=== PATIENT | female | born 1970 | race Caucasian/White ===

== ENCOUNTER → 2020-07-06 14:28 | Outpatient (BNVA) | payer OTHER, SELFPAY | PROVIDERS: Visit Provider Advanced Practice Midwife ==

== ENCOUNTER 2020-07-23 13:42 | Outpatient (REF) | payer OTHER, SELFPAY | END 2020-07-23 13:43 | disposition home or self-care (01) | LOC: HO.LAB 13:42 | PROVIDERS: Visit Provider Advanced Practice Midwife | DX: N84.1 Polyp of cervix uteri (principal) | CPT/HCPCS: 58558; 88305 ==

== ENCOUNTER 2020-09-03 11:33 | Outpatient (REF) | payer OTHER, SELFPAY ==
--- NOTE | ~2020-09-03 | MM_ITS ---
EXAMINATION: MM SCREENING DIGITAL BREAST TOMOSYNTHESIS, BILATERAL CLINICAL INFORMATION: Screening. Asymptomatic. The lifetime risk of breast cancer based on the Tyrer-Cuzick Model is 12%. COMPARISON: Outside mammography: 03/14/2018 ([facility]) TECHNIQUE: Digital breast tomosynthesis is performed in both the craniocaudal and mediolateral oblique views along with computer-aided detection (CAD). Synthesized 2D images are generated from the tomosynthesis. FINDINGS: There are scattered areas of fibroglandular density (ACR BI-RADS breast composition Category b). There are no significant masses, abnormal calcifications, or other abnormalities. The axilla and skin contours are unremarkable. No significant changes from prior outside exam. MM/MM tomosynthesis screening BI IMPRESSION: No mammographic evidence of malignancy. ASSESSMENT: BI-RADS 1: Negative RECOMMENDATION: Routine annual mammography screening. This patient's information was entered into a reminder system with a target due date for their next mammogram.
== END 2020-09-03 11:34 | disposition home or self-care (01) ==
LOC: HO.MAMMO 11:33
PROVIDERS: Visit Provider Physician Assistant
DX: Z12.31 Encounter for screening mammogram for malignant neoplasm of breast (principal)
CPT/HCPCS: 77063; 77067

== ENCOUNTER 2021-08-02 10:34 | Outpatient (REF) | payer OTHER, SELFPAY ==
[2021-08-04 21:02] LABS: HPV mRNA E6/E7 rflx Not Detected (Not Detected)
== END 2021-08-02 10:35 | disposition home or self-care (01) ==
LOC: HO.LAB 10:34
PROVIDERS: Visit Provider Advanced Practice Midwife
DX: Z01.411 Encounter for gynecological examination (general) (routine) with abnormal findings (principal); Z11.51 Encounter for screening for human papillomavirus (HPV); R23.2 Flushing
CPT/HCPCS: 87624; 88142

== ENCOUNTER 2021-10-07 13:44 | Outpatient (REF) | payer OTHER, SELFPAY ==
--- NOTE | ~2021-10-07 | MM_ITS ---
EXAMINATION: MM SCREENING DIGITAL BREAST TOMOSYNTHESIS, BILATERAL CLINICAL INFORMATION: Screening. Asymptomatic. The lifetime risk of breast cancer based on the Tyrer-Cuzick Model is 11%. COMPARISON: Mammography: 09/03/2020, outside exam 03/14/2018 ([facility]). TECHNIQUE: Digital breast tomosynthesis is performed in both the craniocaudal and mediolateral oblique views along with computer-aided detection (CAD). Synthesized 2D images are generated from the tomosynthesis. FINDINGS: There are scattered areas of fibroglandular density (ACR BI-RADS breast composition Category b). There are no significant masses, abnormal calcifications, or other abnormalities. The axilla are unremarkable. No significant changes. MM/MM tomosynthesis screening BI IMPRESSION: No mammographic evidence of malignancy. ASSESSMENT: BI-RADS 1: Negative RECOMMENDATION: Routine annual mammography screening. This patient's information was entered into a reminder system with a target due date for their next mammogram.
== END 2021-10-07 13:45 | disposition home or self-care (01) ==
LOC: HO.MAMMO 13:44
PROVIDERS: Visit Provider Physician Assistant
DX: Z12.31 Encounter for screening mammogram for malignant neoplasm of breast (principal)
CPT/HCPCS: 77063; 77067

== ENCOUNTER → 2022-08-31 08:27 | Outpatient (BNVA) | payer OTHER, SELFPAY | PROVIDERS: PCP Physician Assistant; Visit Provider Advanced Practice Midwife | DX: Z01.419 Encounter for gynecological examination (general) (routine) without abnormal findings (principal); R35.0 Frequency of micturition; R10.9 Unspecified abdominal pain | CPT/HCPCS: 81003 ==

== ENCOUNTER 2022-10-09 13:08 | Outpatient (REF) | payer OTHER, SELFPAY ==
--- NOTE | ~2022-10-09 | MM_ITS ---
EXAMINATION: MM SCREENING DIGITAL BREAST TOMOSYNTHESIS, BILATERAL CLINICAL INFORMATION: Screening. Asymptomatic. The lifetime risk of breast cancer based on the Tyrer-Cuzick Model is 10.8%. COMPARISON: Mammography: This study is compared with prior exams dating back to 2018. TECHNIQUE: Digital breast tomosynthesis is performed in both the craniocaudal and mediolateral oblique views along with computer-aided detection (CAD). Synthesized 2D images are generated from the tomosynthesis. FINDINGS: There are scattered areas of fibroglandular density (ACR BI-RADS breast composition Category b). There are no significant masses, abnormal calcifications, or other abnormalities. MM/MM tomosynthesis screening BI IMPRESSION: No mammographic evidence of malignancy. ASSESSMENT: BI-RADS BI-RADS 1 - Negative RECOMMENDATION: Routine annual mammography screening. 1 year F/U This examination should not preclude the clinical evaluation of a suspicious palpable abnormality. This patient's information was entered into a reminder system with a target due date for their next mammogram.
== END 2022-10-09 13:09 | disposition home or self-care (01) ==
LOC: HO.MAMMO 13:08
PROVIDERS: PCP Physician Assistant; Visit Provider Physician Assistant
DX: Z12.31 Encounter for screening mammogram for malignant neoplasm of breast (principal)
CPT/HCPCS: 77063; 77067

== ENCOUNTER → 2022-10-09 13:15 | Outpatient (BNV) | payer OTHER, SELFPAY | PROVIDERS: PCP Physician Assistant; Visit Provider Radiology Diagnostic Radiology | DX: Z12.31 Encounter for screening mammogram for malignant neoplasm of breast (principal) | CPT/HCPCS: 77063; 77067 ==

== ENCOUNTER 2022-10-17 13:22 | Outpatient (REF) | payer OTHER, SELFPAY | END 2022-10-17 13:23 | disposition home or self-care (01) | LOC: HO.LNP 13:22 | PROVIDERS: PCP Physician Assistant; Visit Provider Advanced Practice Midwife | DX: R10.2 Pelvic and perineal pain (principal); N89.8 Other specified noninflammatory disorders of vagina; R35.0 Frequency of micturition; N91.2 Amenorrhea, unspecified | CPT/HCPCS: 81003; 81025 ==

== ENCOUNTER 2022-10-17 13:22 | Outpatient (AMB) | payer OTHER, SELFPAY ==
[2022-10-17 13:25] VITALS: BP 114/70; BMI 30.1
--- NOTE | 2022-10-17 13:25 | A.OFFVIS_ITS ---
Intake Vital Signs 10/17/22 13:25 Height 5 ft 3 in Weight 170 lb BMI 30.1 BP 114/70 Intake Visit Reasons: Cramping Intake Note: Vaginal cramping and Abd discomfort and feeling like her cervix is going to fall out feeling heavy tugging. Vaginal discharge clear watery. The patient agreed to use of a ophthalmic medical technician during this encounter. Scribed for FRITZ Nick by Leesa Henriquez, ophthalmic medical technician, on 10/17/2022 at 1:35 pm EST. Turner Off Required: No Information Interpreted: non-clinical & clinical [employer]: [employer] Present (Sergio) Allergies sulfacetamide Allergy (Unknown, Verified 10/17/22 13:29) Unknown Is last menstrual period known: No Post menopausal: Yes HPI HPI Comments History of Present Illness Details She is here today with complaints of severe vaginal and pelvic cramping/tugging and clear, watery vaginal discharge since Sunday. States she feels symptoms of tender breast and took at home test with negative results. Denies dysuria, constipation or diarrhea. Admits frequent urination. Currently sexually active with same partner. Has not have menses in over a year. [facility] Medical History (Updated 10/17/22 @ 13:47 by Leesa Henriquez) Amenorrhea Frequency of urination History of abnormal cervical Pap smear History of endometrial biopsy Surgical History History of removal of skin mole Hx of section Family History Maternal Aunt Ovarian cancer Brother Hodgkin lymphoma Social History Alcohol intake: current Alcohol intake frequency: 0-2 drinks per day Alcohol type: wine Patient Tobacco Use Status: Former Tobacco user Quit Date: 2009 Years Smoked: 10 e-Cigarette/Vaping Use: Never Used Second Hand Smoke Exposure: No service: No Current occupational status: employed Current occupation: [employer] Current occupational exposures/hazards: No Sexual orientation: Straight/Heterosexual Gender identity: Female Cognitive needs: No Hearing needs: No Vision needs: Yes Female Reproductive History Menstrual Age of Menarche: 14 control method: none Total pregnancies: 2 Full term: 1 Number of Living Children: 1 Ab spontaneous: 1 Date of last pap smear: 08/03/21 (negative) Physical Exam Vital Signs: Last Vital Signs BP 114/70 10/17/22 13:25 BMI result Body Mass Index 30.1 Const General: cooperative, healthy appearing, comfortable, no acute distress, well developed, alert and awake Other: General: Yes bladder normal to palpation External Female Exam: normal external appearance and normal appearance of the urethra Speculum Exam - Vagina: normal appearance of the vagina, normal palpation and abnormal vaginal discharge (scant) white Speculum Exam - Cervix: normal appearance of the cervix, normal palpation and Other cervical findings present (clear thin mucus) Bimanual exam- vagina & uterus: normal bimanual exam, normal palpation, bladder normal to palpation and normal palpation Bimanual Exam- Adnexa, other: normal adnexae and no masses Results AMB Test Urine AMB Test Urine Negative Last Edit by Sergio Messer Carlos on 10/17/22 13:59 AMB Urinalysis, Automated UA Leukoctes 0 Pio/uL Last Edit by Sergio Messer Carlos on 10/17/22 13:59 UA Nitrite Negative Last Edit by Sergio Messer [facility] on 10/17/22 13:59 UA Urobilinogen 0 mg/dL Last Edit by Sergio Messer Carlos on 10/17/22 13:59 UA Protein 0 mg/dL Last Edit by Sergio Messer [facility] on 10/17/22 13:59 UA pH 6.5 Last Edit by Sergio Messer Carlos on 10/17/22 13:59 UA Blood 0 Juanito/uL Last Edit by Sergio Messer [facility] on 10/17/22 13:59 UA Specific [place] 1.005 Last Edit by Sergio Messer [facility] on 10/17/22 13: 59 UA Ketone Negative Last Edit by Sergio Messer Carlos on 10/17/22 13:59 UA Bilirubin 0 mg/dL Last Edit by Sergio Messer [facility] on 10/17/22 13:59 UA Glucose 0 mg/dL Last Edit by Sergio Messer [facility] on 10/17/22 13:59 Results Reviewed Results Reviewed: Laboratory Last Values Urine pH (Auto) 6.5 10/17/22 13:57 Specific [place] (Auto) 1.005 10/17/22 13:57 Urine Protein (Auto) 0 mg/dL 10/17/22 13:57 Glucose (UA)(Auto) 0 mg/dL 10/17/22 13:57 Urine Ketones (Auto) Negative 10/17/22 13:57 Urine Blood (Auto) 0 Juanito/uL 10/17/22 13:57 Urine Nitrite (Auto) Negative 10/17/22 13:57 Urine Bilirubin (Auto) 0 mg/dL 10/17/22 13:57 Urine Urobilinogen (Auto) 0 mg/dL 10/17/22 13:57 Leukocyte Esterase (Auto) 0 Pio/uL 10/17/22 13:57 Tst Clinic Negative 10/17/22 13:57 Assessment & Plan Assessment & Plan (1) Pelvic cramping: Code(s): R10.2 - Pelvic and perineal pain Plan: Discussed: Discussed work up including FSH and pelvic US. She agrees to have work up done. Pelvic US ordered. Follow up US results appt. Instructed to go to ER with any increased pain. If abnormal bleeding pattern occurs, report to the office for PMB workup. BV testing and GV/CT panel done today. Await results and treat accordingly. All of her questions and concerns were addressed to the best of my ability and shared decision making. She is agreeable to plan of care. (2) Vaginal discharge: Code(s): N89.8 - Other specified noninflammatory disorders of vagina (3) Frequency of urination: Code(s): R35.0 - Frequency of micturition (4) Amenorrhea: Code(s): N91.2 - Amenorrhea, unspecified (5) Pelvic pain: Code(s): R10.2 - Pelvic and perineal pain Orders: Orders Bacterial Vaginosis Panel Today N89.8 - Other specified noninflammatory disorders of vagina, R10.2 - Pelvic and perineal pain CT NG by PCR Today N89.8 - Other specified noninflammatory disorders of vagina, R10.2 - Pelvic and perineal pain US pelvic and transvaginal Today R10.2 - Pelvic and perineal pain Follicle Stimulating Hormone Today N91.2 - Amenorrhea, unspecified, R23.2 - Flushing AMB Urinalysis Automated Today R35.0 - Frequency of micturition AMB HCG Urine Test Today Z32.02 - Encounter for test, result negative Coding Level of Care Code Est Pt Level 4 (94594) Diagnoses Pelvic cramping R10.2 Vaginal discharge N89.8 Frequency of urination R35.0 Amenorrhea N91.2 Pelvic pain R10.2
== END 2022-10-17 15:04 | disposition home or self-care (01) ==
LOC: HO.HWS 13:22
PROVIDERS: PCP Physician Assistant; Visit Provider Advanced Practice Midwife
DX: R10.2 Pelvic and perineal pain (principal); N89.8 Other specified noninflammatory disorders of vagina; R35.0 Frequency of micturition; N91.2 Amenorrhea, unspecified; Z32.02 Encounter for pregnancy test, result negative
CPT/HCPCS: 99214

== ENCOUNTER 2022-10-17 13:56 | Outpatient (REF) | payer OTHER, SELFPAY ==
[2022-10-17 17:58] LABS: CT PCR NOT DETECTED (Not Detect.); NG PCR NOT DETECTED (Not Detect.)
[2022-10-18 11:47] LABS: BV Int Neg Control Negative (Negative); BV Int Pos Control Positive (Positive)
[2022-10-19 07:24] LABS: Follicle Stimulating Hormone 27.3 mIU/mL
== END 2022-10-17 13:57 | disposition home or self-care (01) ==
LOC: HO.LAB 13:56
PROVIDERS: PCP Physician Assistant; Visit Provider Advanced Practice Midwife
DX: R10.2 Pelvic and perineal pain (principal); N91.2 Amenorrhea, unspecified; R23.2 Flushing; N89.8 Other specified noninflammatory disorders of vagina
CPT/HCPCS: 0353U; 83001; 87480; 87510; 87660

== ENCOUNTER 2022-10-23 14:23 | Outpatient (REF) | payer OTHER, SELFPAY ==
--- NOTE | ~2022-10-23 | US_ITS ---
EXAMINATION: US PELVIS COMPLETE CLINICAL INFORMATION: Pelvic pain COMPARISON: None TECHNIQUE: Transabdominal and transvaginal imaging was performed. FINDINGS: The uterus is of normal size and echogenicity measuring 8.2 x 3.5 x 4.5 cm. A regular homogeneous endometrium is identified measuring 0.6 cm. Nabothian cysts in the cervix. Trace free fluid within the endometrial canal. The endometrial calcification. Both ovaries are of normal size and echogenicity. The right measures 2.9 x 1.9 x 2.0 cm for a volume of 5.9 mL. The left measures 2.9 x 1.5 x 1.3 cm for a volume of 3.1 mL. The left ovary is remarkable for a 2.2 cm unilocular simple cyst almost certainly benign. No follow-up imaging recommended. There is no pelvic free fluid. US/US pelvic and transvaginal IMPRESSION: 1. Trace free fluid within the endometrial canal. The endometrium measures 0.6 cm, recommend correlation with any symptoms of postmenopausal bleeding and gynecologic evaluation. 2. A 2.2 cm unilocular simple cyst in the left ovary almost certainly benign. No follow-up imaging recommended.
== END 2022-10-23 14:24 | disposition home or self-care (01) ==
LOC: HO.HMGCX 14:23
PROVIDERS: PCP Physician Assistant; Visit Provider Advanced Practice Midwife
DX: R10.2 Pelvic and perineal pain (principal)
CPT/HCPCS: 76830; 76856

== ENCOUNTER 2022-10-31 08:14 | Outpatient (AMB) | payer OTHER, SELFPAY ==
[2022-10-31 08:19] VITALS: BP 110/70; BMI 30.1
--- NOTE | 2022-10-31 08:19 | A.OFFVIS_ITS ---
Intake Vital Signs 10/31/22 08:19 Height 5 ft 3 in Weight 170 lb BMI 30.1 BP 110/70 Intake Visit Reasons: ultra sound follow up Intake Note: The patient agreed to use of a clinical laboratory medical director during this encounter. Scribed for FRITZ Nick by Leesa Henriquez clinical laboratory medical director, on 10/31/2022 at 8:24 am EST. Allergies sulfacetamide Allergy (Unknown, Verified 10/31/22 08:19) Unknown Post menopausal: Yes HPI HPI Comments History of Present Illness Details She is here to discuss US results regarding pelvic pain. Reports her symptoms of watery discharge and tugging pain have resolved. No bleeding/menses over in a year. States she has occasion hot flashes but not as much as before. Denies urinary symptoms. [facility] Medical History (Updated 10/31/22 @ 08:30 by Leesa Henriquez) Amenorrhea Frequency of urination History of abnormal cervical Pap smear History of endometrial biopsy Simple cystoma of ovary Surgical History History of removal of skin mole Hx of section Family History Maternal Aunt Ovarian cancer Brother Hodgkin lymphoma Social History Alcohol intake: current Alcohol intake frequency: 0-2 drinks per day Alcohol type: wine Patient Tobacco Use Status: Former Tobacco user Quit Date: 2009 Years Smoked: 10 e-Cigarette/Vaping Use: Never Used Second Hand Smoke Exposure: No service: No Current occupational status: employed Current occupation: [employer] Current occupational exposures/hazards: No Sexual orientation: Straight/Heterosexual Gender identity: Female Cognitive needs: No Hearing needs: No Vision needs: Yes Female Reproductive History Menstrual Age of Menarche: 14 Physical Exam Vital Signs: Last Vital Signs BP 110/70 10/31/22 08:19 BMI result Body Mass Index 30.1 Const General: cooperative, healthy appearing, comfortable, no acute distress, well developed, alert and awake Results Reviewed Results Reviewed: EXAMINATION: US PELVIS COMPLETE CLINICAL INFORMATION: Pelvic pain COMPARISON: None TECHNIQUE: Transabdominal and transvaginal imaging was performed. FINDINGS: The uterus is of normal size and echogenicity measuring 8.2 x 3.5 x 4.5 cm. A regular homogeneous endometrium is identified measuring 0.6 cm. Nabothian cysts in the cervix. Trace free fluid within the endometrial canal. The endometrial calcification. Both ovaries are of normal size and echogenicity. The right measures 2.9 x 1.9 x 2.0 cm for a volume of 5.9 mL. The left measures 2.9 x 1.5 x 1.3 cm for a volume of 3.1 mL. The left ovary is remarkable for a 2.2 cm unilocular simple cyst almost certainly benign. No follow-up imaging recommended. There is no pelvic free fluid. US/US pelvic and transvaginal IMPRESSION: 1.? Trace free fluid within the endometrial canal. The endometrium measures 0.6 cm, recommend correlation with any symptoms of postmenopausal bleeding and gynecologic evaluation. 2.? A 2.2 cm unilocular simple cyst in the left ovary almost certainly benign. No follow-up imaging recommended. ? Laboratory Tests 10/17/22 14:06 FSH 27.3 Assessment & Plan Assessment & Plan (1) Encounter to discuss test results: Code(s): Z71.2 - Person consulting for explanation of examination or test findings Plan: Discussed: US findings of: 1.? Trace free fluid within the endometrial canal. The endometrium measures 0.6 cm, recommend correlation with any symptoms of postmenopausal bleeding and gynecologic evaluation. 2.? A 2.2 cm unilocular simple cyst in the left ovary almost certainly benign. No follow-up imaging recommended. EMB would be indicated if any PMB, and purpose was explained to rule out atypia, hyperplasia and possible uterine cancer. Contact office with any PMB. Simple cyst: most resolve on their own, no follow up at this time is needed. If experience left sided pelvic pain, contact office to schedule pelvic US. All of her questions and concerns were addressed to the best of my ability and shared decision making. She is agreeable to plan of care. RTO Annual or prn. (2) Simple cystoma of ovary: Comment: left ovary Code(s): N83.299 - Other ovarian cyst, unspecified side Coding Level of Care Code Est Pt Level 3 (19748) Diagnoses Encounter to discuss test results Z71.2 Simple cystoma of ovary N83.299
== END 2022-10-31 09:56 | disposition home or self-care (01) ==
LOC: HO.HWS 08:14
PROVIDERS: PCP Physician Assistant; Visit Provider Advanced Practice Midwife
DX: Z71.2 Person consulting for explanation of examination or test findings (principal); N83.299 Other ovarian cyst, unspecified side
CPT/HCPCS: 99213

== ENCOUNTER → 2022-10-31 08:14 | Outpatient (BNVA) | payer OTHER, SELFPAY | PROVIDERS: PCP Physician Assistant; Visit Provider Advanced Practice Midwife ==

== ENCOUNTER 2022-11-02 08:33 | Outpatient (AMB) | payer OTHER, SELFPAY ==
[2022-11-02 08:39] VITALS: BMI 30.2
--- NOTE | 2022-11-02 08:39 | MHC.OFFVIS ---
Intake Vital Signs 11/02/22 08:39 Height 5 ft 3 in Weight 170 lb 10.205 oz BMI 30.2 Blood Pressure Location Lt brachial Position Sitting Intake Visit Reasons: screening colonoscopy Intake Note: Josephine presents in office as a new.patient for a colonoscopy screening PT CC: pt reports having no concerns pt denies any other GI Issues Continuity Reader Required: No Accompanied by: Self / Same As Patient Allergies sulfacetamide Allergy (Unknown, Verified 11/02/22 08:40) Unknown HPI HPI Comments History of Present Illness Details 52-year-old female referred for screening colonoscopy Her mother did have colon polyps Bowels are ok Appetite is good She is pre menopausal- bloating- 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- 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 sx resolved No meds No nausea, vomiting, hematemesis, abdominal pain, fever or chills PFSH Medical History Amenorrhea Frequency of urination History of abnormal cervical Pap smear History of endometrial biopsy Simple cystoma of ovary Surgical History History of removal of skin mole Hx of section Family History Maternal Aunt Ovarian cancer Brother Hodgkin lymphoma Social History Alcohol intake: current Alcohol intake frequency: 0-2 drinks per day Alcohol type: wine Patient Tobacco Use Status: Former Tobacco user Quit Date: 2009 Years Smoked: 10 e-Cigarette/Vaping Use: Never Used Second Hand Smoke Exposure: No service: No Current occupational status: employed Current occupation: [employer] Current occupational exposures/hazards: No Sexual orientation: Straight/Heterosexual Gender identity: Female Cognitive needs: No Hearing needs: No Vision needs: Yes Female Reproductive History Menstrual Age of Menarche: 14 Review of Systems Const All systems reviewed & are unremarkable except as noted in HPI and below Card Denies chest pain and Denies dyspnea Resp Denies dyspnea GI Denies abdominal pain and Denies heartburn Physical Exam Vital Signs: BMI result Body Mass Index 30.2 Const General: cooperative, healthy appearing, comfortable and no acute distress Orientation/consciousness: patient oriented x3 Limitations: no limitations Resp Effort & Inspection: normal respiratory effort and able to speak in complete sentences Auscultation: clear to auscultation bilaterally and no wheezes Cardio Rate: regular rate Rhythm: regular rhythm Heart sounds: S1 normal heart sound present and S2 normal heart sound present GI Palpation (GI): Soft to palpation and nontender Auscultation: normal bowel sounds Skin General skin exam: no rashes or lesions noted Neuro General: patient oriented x3 Extrem General: Yes full ROM Psych Appearance: grossly normal and well kempt Mental Status: mental status grossly normal Speech and movement: Normal speech and movement present and Clear speech present Affect: normal affect Attitude: cooperative Thought process: Normal thought process present Thought content: Normal thought content present Insight: Good insight present (Psych) Judgement: Good judgement present (Psych) Assessment & Plan Assessment & Plan (1) Encounter for screening colonoscopy: Comment: Index screening colonoscopy Discussed procedure, rare risks Need for escorted due to anesthesia MiraLax Gatorade split prep -literature given Code(s): Z12.11 - Encounter for screening for malignant neoplasm of colon Plan Index screening Orders: Orders Colonoscopy - GI Use Only Today Z12.11 - Encounter for screening for malignant neoplasm of colon Medications: New bisacodyl (Dulcolax (bisacodyl)) Take 4 tablets by mouth at 12:00pm the day before your procedure. 20 mg (4 x 5 mg) PO ONCE 1 day 4 tabs 0RF colonoscopy prep Z12.11 - Encounter for screening for malignant neoplasm of colon polyethylene glycol 3350 (Miralax) Take as directed by mouth the day before your procedure. 238 grams PO ONCE 1 day 238 grams 0RF laxative effect Patient Instructions: Index screening colonoscopy MiraLax Gatorade split prep Agrees to proceed Opportunity for questions answered to her satisfaction Courage to call questions or concern Coding Level of Care Code New Pt Level 3 (16863) Diagnoses Encounter for screening colonoscopy Z12.11 Time Spent (min) 25
== END 2022-11-02 09:13 | disposition home or self-care (01) ==
PROVIDERS: PCP Physician Assistant; Visit Provider Physician Assistant
DX: Z01.818 Encounter for other preprocedural examination (principal); Z12.11 Encounter for screening for malignant neoplasm of colon
CPT/HCPCS: 99203

== ENCOUNTER → 2022-11-02 08:33 | Outpatient (BNVA) | payer OTHER, SELFPAY | PROVIDERS: PCP Physician Assistant; Visit Provider Physician Assistant ==

== ENCOUNTER 2023-02-07 07:30 | Day surgery (SDC) | payer OTHER, SELFPAY ==
[2023-02-02 17:44] VITALS: BMI 26.6
--- NOTE | 2023-02-06 12:29 | P.CONAN_ITS ---
Documented by User: Poonam Oconnor NP 02/06/23 12:29 HPI - Anesthesia Eval Consult details Narrative: 52yo F for Colonoscopy PMFSH Active Problems Active Problems: All Active Problems (Updated 11/02/22 @ 10:24 by Jennifer Pacheco PA-C) Encounter for screening colonoscopy (Acute) Simple cystoma of ovary (Acute) Amenorrhea (Acute) Colon cancer screening (Acute) Frequency of urination (Acute) Encounter for annual routine gynecological examination (Acute) Carpal tunnel syndrome of left wrist (Acute) Rash (Acute) Skin lesion (Acute) Left elbow pain (Acute) Screening for hypercholesterolemia (Acute) BPPV (benign paroxysmal positional vertigo) (Acute) Screening for hypothyroidism (Acute) Screening for diabetes mellitus (DM) (Acute) Annual physical exam (Acute) Cervical polyp (Acute) Hot flashes (Acute) Encounter for annual routine gynecological examination (Acute) Past Medical History Medical History Simple cystoma of ovary Amenorrhea Frequency of urination History of abnormal cervical Pap smear History of endometrial biopsy Family History Family History Maternal Aunt Ovarian cancer Brother Hodgkin lymphoma Surgical History Surgical History (Updated 02/13/23 @ 12:23 by Bina Merrill) Hx of colonoscopy History of removal of skin mole Hx of section Social History Alcohol intake: current Alcohol intake frequency: does not drink Alcohol type: wine Patient Tobacco Use Status: Former Tobacco user Quit Date: 2009 Smoked: 10 e-Cigarette/Vaping Use: Never Used Second Hand Smoke Exposure: No service: No Current occupational status: employed Current occupation: [employer] Current occupational exposures/hazards: No Sexual orientation: Straight/Heterosexual Gender identity: Female Cognitive needs: No Hearing needs: No Vision needs: Yes Meds Allergies Allergy/AdvReac Type Severity Reaction Status Date / Time sulfacetamide Allergy Unknown Unknown Verified 11/02/22 08:40 Exam Exam Date and Time: February 06, 2023 1229 Height,Weight and Vital Signs: Height 5 ft 3 in Weight 68.039 kg Assessment and Plan Assessment Anesthesia Assessment: Chart Reviewed Documented by User: Sanju Pelayo MD 02/22/23 18:02 PMFSH Past Medical History Medical History Simple cystoma of ovary Amenorrhea Frequency of urination History of abnormal cervical Pap smear History of endometrial biopsy Functional capacity: independent ambulation Family History Family History Maternal Aunt Ovarian cancer Brother Hodgkin lymphoma Family history of problems with anesthesia: No Surgical History Surgical History (Updated 02/13/23 @ 12:23 by Bina Merrill) Hx of colonoscopy History of removal of skin mole Hx of section History of Problems with Anesthesia: No Social History Alcohol intake: current Alcohol intake frequency: does not drink Alcohol type: wine Patient Tobacco Use Status: Former Tobacco user Quit Date: 2009 Years Smoked: 10 e-Cigarette/Vaping Use: Never Used Second Hand Smoke Exposure: No service: No Current occupational status: employed Current occupation: [employer] Current occupational exposures/hazards: No Sexual orientation: Straight/Heterosexual Gender identity: Female Cognitive needs: No Hearing needs: No Vision needs: Yes Meds Allergies Allergy/AdvReac Type Severity Reaction Status Date / Time sulfacetamide Allergy Unknown Unknown Verified 11/02/22 08:40 Exam Airway Mallampati Class: III Loose/Missing/Broken Teeth: Yes (chipped upper ) Assessment and Plan Final Anesthetic Review Family History of Problems with Anesthesia: No History of Problems with Anesthesia: No NPO: Yes ASA Class: II Final Preanesthetic Review: Meds/Allgs Chart Reviewed, Consent Obtained/Reviewed and Anes Risks/Benef Reviewed Patient Risk: Intermediate Procedure Risk: Intermediate Anesthetic Plan Anesthetic Plan: MAC: and Agree w/ Assess. and Plan Disposition: Standard PACU
[2023-02-07 07:58] LABS: UPreg QC Valid YES; Urine Pregnancy NEGATIVE (NEGATIVE)
[2023-02-07 08:00] VITALS: BP 127/83; PULSE 70; RESP 16; TEMP 36.6; O2SAT 100
[2023-02-07] MEDS: Lactated Ringers 1,000 ML 100 ML IVCONT (08:20)
--- NOTE | 2023-02-07 08:35 | MHC.SHP ---
Pre-Procedural Eval Section A Date of Service: 02/07/23 Section B Chief Complaint: Encounter for screening for malignant neoplasm Relevant Family History (Specify if Yes): No Relevant Social History: None Present Medications: see Short Stay Collaborative assessment Medical History: Significant History (Amenorrhea Frequency of urination History of abnormal cervical Pap smear History of endometrial biopsy Simple cystoma of ovary) History of Previous Operations: Relevant previous surgery/procedure and date(s) () Allergies: Allergies Allergy/AdvReac Type Severity Reaction Status Date / Time sulfacetamide Allergy Unknown Unknown Verified 11/02/22 08:40 Review of Systems Sugical H&P ROS: Negative: Constitution, Cardiovascular, Respiratory, Neurological, Psychiatric, Hem-Onc, Allergic/Immunologic, Gastrointestinal, Genitourinary, Musculoskeletal, Integumentary, Endocrine and Eyes/Ears/Nose/Throat Exam Surgical H&P Exam: Normal: HEENT, Normal: Heart, Normal: Lungs, Normal: Extremities, Normal: Abdomen, Normal: Skin and Normal: Neurological Plan Diagnosis/Plan: Unchanged I have reviewed the history and physical and performed a pertinent physical examination on my patient. No changes have occurred unless specified. Time Spent With Patient Time: Total time managing care of this patient today ____ minutes.
--- NOTE | 2023-02-07 08:36 | P.OP_ITS ---
Operative Note Operative Note Date of Service: 02/07/23 Narrative: Operative Information Procedure Description: Colonoscopy Indication: screening Anesthesia: MAC COLONOSCOPY Instrument: Olympus variable stiffness pediatric scope 190L Colonoscopy Monitoring: Vital signs and clinical assessment, continuous EKG monitoring, Pulse oximetry, Carbon Dioxide monitoring and blood pressure monitoring were done throughout the procedure. Colon withdrawal time was 10 minutes. Procedure: The patient was placed in the left lateral decubitis position and pre-procedure medications were administered. After a digital rectal examination of the ano-rectum, the video colonoscope was inserted into the rectum and advanced through the colon to the cecum/TI. The colonoscope was slowly withdrawn in a retrograde panoramic fashion and the colon mucosa was carefully examined including a retroflexed view of the rectum. Findings and interventions are described below. Procedure Difficulty: easy Findings: Terminal Ileum-normal Cecum:normal Ascending Colon: normal Transverse Colon -normal Descending Colon: x1 sessile polyp 7-8 mm removed with cold forceps Sigmoid Colon: x1 sessile polyp 4-6 mm removed with cold forceps Rectum: Retroflexion with small internal hemorrhoids, grade I with skin tags Anorectum - normal Colon preparation: Henderson Bowel Preparation Scale Right colon; 2 Transverse colon: 2 Left colon; 2 (0 = Unprepared colon segment with mucosa not seen due to solid stool that cannot be cleared. 1 = Portion of mucosa of the colon segment seen, but other areas of the colon segment not well seen due to staining, residual stool and/or opaque liquid. 2 = Minor amount of residual staining, small fragments of stool and/or opaque liquid, but mucosa of colon segment seen well. 3 = Entire mucosa of colon segment seen well with no residual staining, small fragments of stool or opaque liquid) Impression and Post Procedure Diagnosis: polyps internal hemorrhoids Plan: High fiber diet leaflet Avoid straining at stool, epsom salts and sitz bath, anusol supps or cream Repeat Colonoscopy in 5 years due to polyps or earlier if clinically indicated Above findings were reviewed with the patient and relevant handouts were provided if indicated.
[2023-02-07 09:03] VITALS: BP 110/66; PULSE 92; RESP 16; TEMP 36.6; O2SAT 98
[2023-02-07 09:17] VITALS: BP 110/68; PULSE 73; RESP 16; O2SAT 99
[2023-02-07 09:32] VITALS: BP 109/67; PULSE 82; RESP 18; TEMP 36.1; O2SAT 99
== END 2023-02-07 10:12 | disposition home or self-care (01) ==
PROVIDERS: Anesthesiology; PCP Physician Assistant; Visit Provider Internal Medicine Gastroenterology
PROC: 0DJD8ZZ Inspection of Lower Intestinal Tract, Via Natural or Artificial Opening Endoscopic (ICD-10-PCS; CPT 45378; principal; 2023-02-07 08:30)
DX: Z12.11 Encounter for screening for malignant neoplasm of colon (principal); D12.4 Benign neoplasm of descending colon; D12.5 Benign neoplasm of sigmoid colon; K64.0 First degree hemorrhoids; K64.4 Residual hemorrhoidal skin tags; R35.0 Frequency of micturition; N83.292 Other ovarian cyst, left side; Z88.2 Allergy status to sulfonamides; Z87.891 Personal history of nicotine dependence
CPT/HCPCS: 45380; 81025; 88305

== ENCOUNTER → 2023-02-07 07:30 | Outpatient (BNV) | payer OTHER, SELFPAY | PROVIDERS: PCP Physician Assistant; Visit Provider Internal Medicine Gastroenterology | DX: Z12.11 Encounter for screening for malignant neoplasm of colon (principal); D12.4 Benign neoplasm of descending colon; D12.5 Benign neoplasm of sigmoid colon; K64.0 First degree hemorrhoids | CPT/HCPCS: 45380 ==

== ENCOUNTER 2023-10-19 11:37 | Outpatient (AMB) | payer OTHER, SELFPAY ==
--- NOTE | 2023-10-19 11:38 | MHC.OFFVIS ---
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 She is doing well with no concerns. Attempting to eat a healthy diet with multivitamin and stays active with exercise. Currently not sexually active due to medical concerns. Admits vaginal dryness. STI testing offered; she declines. Last pap smear; 2021. Last mammogram; 2022. Colonoscopy is UTD. Denies any family history of breast, ovarian or colon cancer. [facility] Medical History (Updated 10/19/23 @ 11:58 by Josephine Geiger CNM) Simple cystoma of ovary Amenorrhea Frequency of urination History of abnormal cervical Pap smear History of endometrial biopsy Surgical History (Updated 10/19/23 @ 11:46 by EVERETT Gates) History of loop electrical excision procedure (LEEP) Hx of colonoscopy History of removal of skin mole Hx of section Family History Maternal Aunt Ovarian cancer Brother Hodgkin lymphoma Social History Alcohol intake: current Alcohol intake frequency: does not drink Alcohol type: wine Patient Tobacco Use Status: Former Tobacco user Years Smoked: 10 e-Cigarette/Vaping Use: Never Used Second Hand Smoke Exposure: No service: No Current occupational status: employed Current occupation: [employer] Current occupational exposures/hazards: No Sexual orientation: Straight/Heterosexual Gender identity: Female Cognitive needs: No Hearing needs: No Vision needs: Yes Female Reproductive History Menstrual Age of Menarche: 14 Menopause type: natural Total pregnancies: 2 Full term: 1 Number of Living Children: 1 Date of last pap smear: 08/02/21 (neg pap and hpv) History of abnormal pap smear: Yes (hx mild dysplasia age 21) Date of Mammogram: 10/09/22 (Birad 1) Review of Systems Const All systems reviewed & are unremarkable except as noted in HPI and below Reports as per HPI Eyes Reports no additional complaints ENT Reports no additional complaints Card Reports no additional complaints Resp Reports no additional complaints GI Reports as per HPI and Reports no additional complaints Reports as per HPI Musc Reports no additional complaints Skin/Breast Reports as per HPI Neuro Reports no additional complaints Psych Reports no additional complaints Endo Reports no additional complaints Jp/Lymph Reports no additional complaints Aller/Immun Reports no additional complaints Physical Exam Vital Signs: Last Vital Signs BP 110/70 10/19/23 11:39 BMI result Body Mass Index 29.6 Const General: cooperative, healthy appearing, no acute distress, well developed and alert Orientation/consciousness: patient oriented x3 HEENT Head: Yes normal to inspection Eyes General: appearance normal, both eyes and all related structures Neck Neck: Yes normal visual inspection Thyroid: Thyroid normal Chest Chest palpation & inspection: normal inspection of the chest and other (no puckering, dimpling, peau de orange, retraction, discharge, masses) Breast/axilla inspection: normal inspection of the breasts Breast/axilla palpation: normal palpation of the breasts Resp Effort & Inspection: normal respiratory effort GI Inspection: Yes normal to inspection Palpation (GI): Soft to palpation Rectal Exam - Female: deferred General: Yes bladder normal to palpation External Female Exam: normal external appearance and normal appearance of the urethra Speculum Exam - Vagina: normal appearance of the vagina, normal palpation and normal vaginal discharge Speculum Exam - Cervix: normal appearance of the cervix and normal palpation Bimanual exam- vagina & uterus: normal bimanual exam, normal palpation, uterine size normal, bladder normal to palpation, normal palpation and non-tender Bimanual Exam- Adnexa, other: no masses Skin General skin exam: no rashes or lesions noted Rashes: no rashes Neuro General: patient oriented x3 Cognition (Neuro): normal cognition Extrem General: Yes normal to inspection Psych Attitude: cooperative Thought process: Normal thought process present Assessment & Plan Assessment & Plan (1) Encounter for well woman exam with routine gynecological exam: Code(s): Z01.419 - Encounter for gynecological examination (general) (routine) without abnormal findings Category: Medical Plan Discussed: Current recommendations for pap smears per ASCCP guidelines. Breast awareness, periodic self breast exams and yearly mammogram. Maintain a healthy lifestyle, well balanced diet including Calcium 1,200 mg and Vitamin D 600 IU daily, and routine exercise. Menopause changes, role of HRT, [email or web address].org for reference. Replens moisturizer. Contact the office with any postmenopausal bleeding. Patient verbalizes understanding and agrees to the plan of care. She was given opportunity to ask questions and all questions were answered to the best of my ability. 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 This note is constructed using voice recognition software. While every effort has been made to ensure accuracy, senior javascript engineer errors may have been included. Orders: Orders MM tomosynthesis screening BI Today Z12.31 - Encounter for screening mammogram for malignant neoplasm of breast Coding Level of Care Code Est Pt Prev Care 40-64y(07082) Diagnoses Encounter for well woman exam with routine gynecological exam Z01.419
[2023-10-19 11:39] VITALS: BP 110/70; BMI 29.6
== END 2023-10-19 12:26 | disposition home or self-care (01) ==
PROVIDERS: PCP Physician Assistant; Visit Provider Advanced Practice Midwife
DX: Z01.419 Encounter for gynecological examination (general) (routine) without abnormal findings (principal)
CPT/HCPCS: 99396

== ENCOUNTER → 2023-10-19 11:37 | Outpatient (BNVA) | payer OTHER, SELFPAY | PROVIDERS: PCP Physician Assistant; Visit Provider Advanced Practice Midwife ==

== ENCOUNTER 2023-12-05 12:03 | Outpatient (REF) | payer OTHER, SELFPAY ==
--- NOTE | ~2023-12-05 | MM_ITS ---
EXAMINATION: MM SCREENING DIGITAL BREAST TOMOSYNTHESIS, BILATERAL CLINICAL INFORMATION: Screening. Asymptomatic. COMPARISON: Mammography: Comparison is made with available priors TECHNIQUE: Digital breast mammography with tomosynthesis is performed in both the craniocaudal and mediolateral oblique views along with computer-aided detection (CAD). FINDINGS: There are scattered areas of fibroglandular density (ACR BI-RADS breast composition Category b). There are no significant masses, abnormal calcifications, or other abnormalities. MM/MM tomosynthesis screening BI IMPRESSION: No mammographic evidence of malignancy. ASSESSMENT: BI-RADS BI-RADS 1 - Negative RECOMMENDATION: Routine annual mammography screening. 1 year F/U This examination should not preclude the clinical evaluation of a suspicious palpable abnormality. This patient's information was entered into a reminder system with a target due date for their next mammogram. Electronically signed by: Stormy Rodriguez DO 12/23/2023 09:36 AM EDT
== END 2023-12-05 12:04 | disposition home or self-care (01) ==
LOC: HO.MAMMO 12:03
PROVIDERS: PCP Physician Assistant; Visit Provider Advanced Practice Midwife
DX: Z12.31 Encounter for screening mammogram for malignant neoplasm of breast (principal)
CPT/HCPCS: 77063; 77067

== ENCOUNTER → 2023-12-05 12:15 | Outpatient (BNV) | payer OTHER, SELFPAY | PROVIDERS: PCP Physician Assistant; Visit Provider Internal Medicine | DX: Z12.31 Encounter for screening mammogram for malignant neoplasm of breast (principal) | CPT/HCPCS: 77063; 77067 ==

== ENCOUNTER 2024-02-21 14:07 | Outpatient (AMB) | payer OTHER, SELFPAY ==
[2024-02-21 14:17] VITALS: BP 100/64; PULSE 78; O2SAT 98; BMI 29.3
--- NOTE | 2024-02-21 14:17 | A.OFFPC_ITS ---
Vital Signs 02/21/24 14:17 Height 5 ft 3 in Weight 165 lb 8 oz BMI 29.3 BP 100/64 Blood Pressure Location Lt brachial Position Sitting Pulse 78 Pulse Source Pulse Oximeter Pulse Oximetry (%) 98 Oxygen Delivery Method Room Air Intake Visit Reasons: [facility] 02/16 nausea + vertigo Central Office Worker Required: No Accompanied by: Self / Same As Patient Allergies sulfacetamide Allergy (Unknown, Verified 02/21/24 14:22) Unknown Tobacco use date assessed: 02/21/24 Dental Screening Dental Screen Date: 02/21/24 Did you have a dental visit in the last 12 months?: Yes Did you have a dental problem in the last 6 months where you did not have access to dental care?: No Was dental information given to patient?: Patient has dentist HPI [facility] 02/16 nausea + vertigo HPI Details Patient is a 53-year-old female here today for problem visit. Recently seen at an urgent care for acute dizziness and nausea. She has signs and symptoms of BPPV and has recently started vestibular therapy Which she reports some improvement. She does have access meclizine as well which she uses with good effect. 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 she does report a family history of Meniere's disease. she has set up appointment with the ENT though not until September of 2024. she does report some vague decrease in her hearing and would like a hearing exam. [facility], [facility] Medical History (Updated 02/21/24 @ 15:07 by Tito Townsend PA-C) Simple cystoma of ovary Amenorrhea Frequency of urination History of abnormal cervical Pap smear History of endometrial biopsy Surgical History History of loop electrical excision procedure (LEEP) Hx of colonoscopy History of removal of skin mole Hx of section Family History Maternal Aunt Ovarian cancer Brother Hodgkin lymphoma Social History Housing: House Alcohol intake: current Alcohol intake frequency: does not drink Alcohol type: wine Patient Tobacco Use Status: Former Tobacco user Years Smoked: 10 e-Cigarette/Vaping Use: Never Used Second Hand Smoke Exposure: No service: No Current occupational status: employed Current occupation: [employer] Current occupational exposures/hazards: No Sexual orientation: Straight/Heterosexual Gender identity: Female Cognitive needs: No Hearing needs: No Vision needs: Yes Female Reproductive History Menstrual Age of Menarche: 14 Questionnaire PHQ-9 Over the last 2 weeks, how often have you been bothered by any of the following problems? 1. Little interest or pleasure in doing things: not at all 2. Feeling down, depressed, or hopeless: not at all 3. Trouble falling or staying asleep, or sleeping too much: not at all 4. Feeling tired or having little energy: not at all 5. Poor appetite or overeating: not at all 6. Feeling bad about yourself - or that you are a failure or have let yourself or your family down: not at all 7. Trouble concentrating on things, such as reading the newspaper or watching television: not at all 8. Moving or speaking so slowly that other people could have noticed. Or the opposite - being so fidgety or restless that you have been moving around a lot more than usual: not at all 9. Thoughts that you would be better off or of hurting yourself in some way: not at all Total score: 0 Depression Screening Interpretation: Negative Depression Screening Done: Yes 89742 - PHQ-9 Billing: Yes Source: Developed by Drs. Allan Padilla, Angeli Durbin, Oniel Brewster and colleagues, with an educational augustine from [employer]. Thrive Questionnaire Date Thrive assessed: 02/21/24 I am a: Patient What is your living situation today?: I have a steady place to live Within the past 12 months, did the food you bought not last and you didn't have the money to get more?: Never true Within the past 12 months, did you worry whether your food would run out before you got money to buy more?: Never true Do you have trouble paying for medicines?: No Do you have trouble getting transportation to medical appointments?: No Do you have trouble paying your heating and electricity bill?: No Do you have trouble taking care of your child, family member or friend?: No Do you have trouble with day-to-day activities such as bathing, preparing meals, shopping, managing finances, etc.?: No Are you currently unemployed and looking for a job?: No Are you interested in more education?: No Please select the resources that you would like help with: None Currently or been in a relationship where the following occur: No concerns reported THRIVE Score: 0 AUDIT C Alcohol Use Questionnaire (AUDIT-C) 1. How often do you have a drink containing alcohol?: Never 3. How often do you have six or more drinks on one occasion?: Never Total Score: 0 Score Reviewed/Action Taken: No MIGUEL-7 AMB Questionnaire MIGUEL-7 Date MIGUEL - 7 assessed: 02/21/24 Feeling nervous, anxious, or on edge: 0 = Not at all Not being able to stop or control worryin = Not at all Worrying too much about different things: 0 = Not at all Trouble relaxin = Not at all Being so restless that it is hard to sit still: 0 = Not at all Becoming easily annoyed or irritable: 0 = Not at all Feeling afraid as if something awful might happen: 0 = Not at all Total MIGUEL-7 score (0-4 normal; 5-9 mild; 10-14 moderate; 15-21 severe): 0 Source: Developed by Drs. Allan Padilla, Angeli Durbin, Oniel Brewster and colleagues, with an educational augustine from [employer]. MIGUEL-7 Assessment Billing MIGUEL-7 Assessment Tool: MIGUEL-7 Assessment 98345 Review of Systems Const Reports headache(s) Eyes Denies loss of vision ENT Denies vertigo, Reports dizziness, Reports headache(s) and Denies sore throat Card Denies chest pain, Denies leg edema and Denies lightheadedness Resp Denies cough, Denies hemoptysis and Denies wheezing GI Denies abdominal pain, Denies melena, Denies constipation, Denies diarrhea and Denies vomiting Denies urinary frequency, Denies dysuria and Denies urinary urgency Musc Denies arthralgias, Denies joint swelling, Denies numbness and Denies tingling Neuro Denies Abnormal speech present, Denies behavioral changes, Denies vertigo, Reports dizziness, Reports headache(s), Denies loss of vision, Denies memory loss, Denies numbness and Denies tingling Psych Denies anxiety, Denies behavioral changes, Denies depression, Denies memory loss and Denies panic attacks Jp/Lymph Denies easy bleeding and Denies easy bruising Aller/Immun Denies wheezing Physical exam (Primary Care) Vital Signs: Last Vital Signs Pulse 78 02/21/24 14:17 BP 100/64 02/21/24 14:17 Pulse Ox 98 02/21/24 14:17 Oxygen Delivery Method Room Air 02/21/24 14:17 BMI result Body Mass Index 29.3 Tobacco/Smoking Status: Tobacco use Status Tobacco use date assessed 02/21/24 02/21/24 14:23 Patient Tobacco Use Status Former Tobacco user 02/21/24 14:17 Tobacco use type 11/17/21 11:45 e-Cigarette/Vaping Use Never Used 02/21/24 14:17 PHQ-9: PHQ-9 Score PHQ-9: Total score 0 02/21/24 14:24 Depression Screening Interpretation: Negative Thrive Assessment: Date of Thrive Assessment Date Thrive assessed 02/21/24 02/21/24 14:23 Currently or been in a relationship where the following occur: No concerns reported Const General: healthy appearing, no acute distress, alert and awake Nutritional Appearance: well nourished Orientation/consciousness: oriented to person, oriented to place and oriented to time HENMT Other: RIGHT EAR TYMPANIC MEMBRANE WITH AIR-FLUID LEVELS NOTED Ears: TM's normal bilaterally General nose exam: Normal nasal mucous membranes and turbinates present Eyes Conjunctivae: conjunctivae normal Sclerae: sclerae normal Pupils: Equal, round and reactive pupils present Neck Neck: Yes no lymphadenopathy and Yes no JVD Thyroid: Thyroid normal Carotids: no bruits Resp Effort & Inspection: normal respiratory effort and not tachypneic Auscultation: no crackles, no rales, no rhonchi and no wheezes Cardio Rate: regular rate Rhythm: regular rhythm Heart sounds: no murmurs and normal S1 and S2 GI Palpation (GI): Soft to palpation, nontender, no hepatomegaly and no splenomegaly Auscultation: normal bowel sounds Skin General skin exam: no rashes or lesions noted and dry skin Neuro General: oriented to person, oriented to place and oriented to time Cranial nerves: Yes Equal, round and reactive pupils present Speech: No Abnormal speech present Gait exam (Neuro): Normal gait present Motor exam (neuro): no tremor noted Extrem Right upper extremity: full ROM Left upper extremity: full ROM Right lower extremity: full ROM; no edema Left lower extremity: full ROM; no edema Psych Mental Status: mental status grossly normal Speech and movement: Normal speech and movement present Affect: normal affect Attitude: cooperative Thought process: Normal thought process present Office Procedures Flu Questionnaire Does the patient have a severe egg allergy?: No Immunizations Fluarix Triv [id number] (PF) 45 mcg (15 mcg x 3)/0.5 mL IM syringe Performing Provider: Tito Townsend PA-C [facility] Documented (not given) by: JOE Stockton on 02/21/24 14:25 Reason Not Given: Patient Refused Coding Level of Care Code Est Pt Level 3 (11385) Diagnoses Benign paroxysmal positional vertigo due to bilateral vestibular disorder H81.13 Laterality: bilateral Sensorineural hearing loss (SNHL) of both ears H90.3 Laterality: bilateral Additional Codes MIGUEL-7 Assessment Billing - MIGUEL-7 Assessment Tool: MIGUEL-7 Assessment 51141 ([id number]) PHQ-9 - 51079 - PHQ-9 Billing: Yes ([id number]) Assessment & Plan Assessment & Plan (1) BPPV (benign paroxysmal positional vertigo): Code(s): H81.10 - Benign paroxysmal vertigo, unspecified ear Category: Medical Qualifiers: Laterality: bilateral Qualified Code(s): H81.13 - Benign paroxysmal [place] tigo, bilateral Plan: Patient does admit to having some improvement in her dizziness symptoms with meclizine and recently started vestibular therapy which has been helpful. On physical exam today right ear does have some air-fluid levels which may be causing her issue. Advised on nasal spray and antihistamine therapy. (2) SNHL (sensorineural hearing loss): Code(s): H90.5 - Unspecified sensorineural hearing loss Category: Medical Qualifiers: Laterality: bilateral Qualified Code(s): H90.3 - Sensorineural hearing loss, bilateral Plan: patient reports having some trouble with her hearing and would like a hearing exam. Orders: Orders Influenza [id number] Immunization Today Z23 - Encounter for immunization Referrals Speech and Hearing Referral H90.3 - Sensorineural hearing loss, bilateral Medications: New meclizine 25 mg PO TID 15 days PRN 45 tabs 0RF dizziness H81.13 - Benign paroxysmal vertigo, bilateral
== END 2024-02-21 15:16 | disposition home or self-care (01) ==
PROVIDERS: PCP Physician Assistant; Visit Provider Physician Assistant
DX: H81.13 Benign paroxysmal vertigo, bilateral (principal); H90.3 Sensorineural hearing loss, bilateral; Z23 Encounter for immunization

== ENCOUNTER → 2024-02-21 14:07 | Outpatient (BNVA) | payer OTHER, SELFPAY | PROVIDERS: PCP Physician Assistant; Visit Provider Physician Assistant | DX: H81.13 Benign paroxysmal vertigo, bilateral (principal); H90.3 Sensorineural hearing loss, bilateral; Z28.21 Immunization not carried out because of patient refusal | CPT/HCPCS: 90471; 96127 ==

== ENCOUNTER 2024-02-23 08:56 | Outpatient (REF) | payer OTHER, SELFPAY ==
[2024-02-23 09:46] LABS: Hemoglobin 14.1 g/dl (12.0-16.0); Mean Corpuscular HGB Conc 32.8 g/dl (31.0-35.0); Mean Corpuscular Hemoglobin 28.8 pg (27.0-33.0); Mean Corpuscular Volume 87.9 fL (80.0-98.0); Mean Platelet Volume 9.2 fL (9.4-12.3); Platelet Count 297 X10*3/uL (160-400); Red Blood Count 4.89 X10*6/uL (4.20-5.50); Red Cell Distribution Width 11.6 % (11.0-16.0); White Blood Count 7.3 X10*3/uL (4.8-10.8)
[2024-02-23 09:55] LABS: Alanine Aminotransferase 22 U/L (0-31); Albumin Level 4.3 g/dL (3.5-5.0); Alkaline Phosphatase 93 U/L (39-117); Anion Gap 10 (12-20); Aspartate Amino Transferase 19 U/L (5-31); Bilirubin Total 0.6 mg/dL (0.0-1.0); Blood Urea Nitrogen 10 mg/dL (9-16); Calcium 9.3 mg/dL (8.4-10.2); Carbon Dioxide 27 mmol/L (22-29); Chloride 107 mmol/L (96-108); Estimated Glomerular Filt Rate > 60; Glucose Fasting 89 mg/dL (60-99); Iron 106 mcg/dL (30-160); Percent Iron Saturation 42 % (15-50); Potassium 4.2 mmol/L (3.3-5.1); Sodium 140 mmol/L (135-145); Total Iron Binding Capacity 254 mcg/dL (228-428); Total Protein 7.1 g/dL (6.5-8.0); Unsaturated Iron Binding 148 ug/dL
[2024-02-23 10:12] LABS: TSH reflex Free T4 1.68 uIU/mL (0.32-4.0)
== END 2024-02-23 08:57 | disposition home or self-care (01) ==
LOC: HO.LAB 08:56
PROVIDERS: PCP Physician Assistant; Visit Provider Physician Assistant
DX: R41.0 Disorientation, unspecified (principal); Z13.1 Encounter for screening for diabetes mellitus; D50.9 Iron deficiency anemia, unspecified; R23.2 Flushing
CPT/HCPCS: 36415; 80053; 83540; 84443; 85027

== ENCOUNTER 2024-03-19 15:23 | Outpatient (REF) | payer OTHER, SELFPAY | END 2024-03-19 15:24 | disposition home or self-care (01) | LOC: HO.SH 15:23 | PROVIDERS: Visit Provider Physician Assistant | DX: Z01.118 Encounter for examination of ears and hearing with other abnormal findings (principal); H90.3 Sensorineural hearing loss, bilateral | CPT/HCPCS: 92557; 92567 ==

== ENCOUNTER 2024-09-16 15:08 | Outpatient (AMB) | payer OTHER, SELFPAY ==
--- NOTE | 2024-09-16 15:10 | MHC.PC.OV ---
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 Accompanied by: Self / Same As Patient Allergies sulfacetamide Allergy (Unknown, Verified 09/16/24 15:35) Unknown Medication List - Last Reconciled 09/16/24 by Tito Townsend PA-C meclizine 12.5 mg PO TID PRN Tobacco use date assessed: 09/16/24 Dental Screening Dental Screen Date: 09/16/24 Did you have a dental visit in the last 12 months?: Yes Did you have a dental problem in the last 6 months where you did not have access to dental care?: No Was dental information given to patient?: Patient has dentist HPI dicuss back issues HPI Details The patient is a 54-year-old female presenting with the recurrence of Benign Paroxysmal Positional Vertigo (BPPV). The BPPV symptoms reappeared a week ago, with a pattern similar to an episode in January. The patient performed the Roseanna maneuver, which initially provided relief, but symptoms returned, causing her to remain horizontal for a day. The patient reports that activities such as yoga and Pilates seem to trigger the vertigo symptoms. She has been experiencing difficulty with eye tracking and nausea, although the nausea has lessened. The patient has not undergone an MRI as previously recommended, questioning its necessity given the improvement with maneuvers and medication. The patient also reports issues with sacroiliac joint dysfunction, characterized by dull, aching pain in the left upper gluteal region. The pain is exacerbated by sitting and alleviated by walking or swimming. She has not been using anti-inflammatory medications but has been advised to consider them. Additionally, fluid was noted in the right middle ear, which may contribute to her vestibular symptoms. The patient has been advised to use antihistamines like Claritin to manage the fluid accumulation. [facility] Medical History (Updated 09/16/24 @ 15:44 by Tito Townsend PA-C) Simple cystoma of ovary Amenorrhea Frequency of urination History of abnormal cervical Pap smear History of endometrial biopsy Surgical History History of loop electrical excision procedure (LEEP) Hx of colonoscopy History of removal of skin mole Hx of section Family History Maternal Aunt Ovarian cancer Brother Hodgkin lymphoma Social History Housing: House Alcohol intake: current Alcohol intake frequency: does not drink Alcohol type: wine Patient Tobacco Use Status: Former Tobacco user Years Smoked: 10 e-Cigarette/Vaping Use: Never Used Second Hand Smoke Exposure: No service: No Current occupational status: employed Current occupation: [employer] Current occupational exposures/hazards: No Sexual orientation: Straight/Heterosexual Gender identity: Female Cognitive needs: No Hearing needs: No Vision needs: Yes Female Reproductive History Menstrual Age of Menarche: 14 Questionnaire PHQ-9 Over the last 2 weeks, how often have you been bothered by any of the following problems? 1. Little interest or pleasure in doing things: several days 2. Feeling down, depressed, or hopeless: not at all 3. Trouble falling or staying asleep, or sleeping too much: not at all 4. Feeling tired or having little energy: several days 5. Poor appetite or overeating: not at all 6. Feeling bad about yourself - or that you are a failure or have let yourself or your family down: not at all 7. Trouble concentrating on things, such as reading the newspaper or watching television: several days 8. Moving or speaking so slowly that other people could have noticed. Or the opposite - being so fidgety or restless that you have been moving around a lot more than usual: not at all 9. Thoughts that you would be better off or of hurting yourself in some way: not at all Total score: 3 Depression Screening Interpretation: Positive Depression Screening Follow-up: Existing condition Depression Screening Done: Yes 38312 - PHQ-9 Billing: Yes Source: Developed by Drs. Allan Padilla, Angeli Durbin, Oniel Brewster and colleagues, with an educational augustine from [employer]. Thrive Questionnaire Date Thrive assessed: 09/16/24 I am a: Patient What is your living situation today?: I have a steady place to live Within the past 12 months, did the food you bought not last and you didn't have the money to get more?: Never true Within the past 12 months, did you worry whether your food would run out before you got money to buy more?: Never true Do you have trouble paying for medicines?: No Do you have trouble getting transportation to medical appointments?: No Do you have trouble paying your heating and electricity bill?: No Do you have trouble taking care of your child, family member or friend?: No Do you have trouble with day-to-day activities such as bathing, preparing meals, shopping, managing finances, etc.?: No Are you currently unemployed and looking for a job?: No Are you interested in more education?: No Please select the resources that you would like help with: None Currently or been in a relationship where the following occur: No concerns reported THRIVE Score: 0 AUDIT C Alcohol Use Questionnaire (AUDIT-C) 1. How often do you have a drink containing alcohol?: 2-3 times a week 2. How many drinks containing alcohol do you have on a typical day when you are drinking?: 1 or 2 3. How often do you have six or more drinks on one occasion?: Never Total Score: 3 MIGUEL-7 AMB Questionnaire MIGUEL-7 Date MIGUEL - 7 assessed: 09/16/24 Feeling nervous, anxious, or on edge: 0 = Not at all Not being able to stop or control worryin = Not at all Worrying too much about different things: 0 = Not at all Trouble relaxin = Not at all Being so restless that it is hard to sit still: 0 = Not at all Becoming easily annoyed or irritable: 0 = Not at all Feeling afraid as if something awful might happen: 0 = Not at all Total MIGUEL-7 score (0-4 normal; 5-9 mild; 10-14 moderate; 15-21 severe): 0 Source: Developed by Drs. Allan Padilla, Angeli Durbin, nOiel Brewster and colleagues, with an educational augustine from [employer] MIGUEL-7 Assessment Billing MIGUEL-7 Assessment Tool: MIGUEL-7 Assessment 84876 Review of Systems Const Denies headache(s) Eyes Denies loss of vision ENT Denies vertigo, Denies dizziness, Denies headache(s) and Denies sore throat Card Denies chest pain, Denies leg edema and Denies lightheadedness Resp Denies cough, Denies hemoptysis and Denies wheezing GI Denies abdominal pain, Denies melena, Denies constipation, Denies diarrhea and Denies vomiting Denies urinary frequency, Denies dysuria and Denies urinary urgency Musc Denies arthralgias, Denies joint swelling, Denies numbness and Denies tingling Neuro Denies Abnormal speech present, Denies behavioral changes, Denies vertigo, Denies dizziness, Denies headache(s), Denies loss of vision, Denies memory loss, Denies numbness and Denies tingling Psych Denies anxiety, Denies behavioral changes, Denies depression, Denies memory loss and Denies panic attacks Jp/Lymph Denies easy bleeding and Denies easy bruising Aller/Immun Denies wheezing Physical exam (Primary Care) Vital Signs: Last Vital Signs Temp 96.9 F 09/16/24 15:17 Pulse 67 09/16/24 15:17 BP 102/64 09/16/24 15:17 Pulse Ox 100 09/16/24 15:17 Oxygen Delivery Method Room Air 09/16/24 15:17 BMI result Body Mass Index 30.1 Tobacco/Smoking Status: Tobacco use Status Tobacco use date assessed 09/16/24 09/16/24 15:12 Patient Tobacco Use Status Former Tobacco user 09/16/24 15:12 Tobacco use type 11/17/21 11:45 e-Cigarette/Vaping Use Never Used 09/16/24 15:12 PHQ-9: PHQ-9 Score PHQ-9: Total score 3 09/16/24 15:37 Depression Screening Interpretation: Positive Depression Screening Follow-up: Existing condition Thrive Assessment: Date of Thrive Assessment Date Thrive assessed 09/16/24 09/16/24 15:12 Currently or been in a relationship where the following occur: No concerns reported Const General: healthy appearing, no acute distress, alert and awake Nutritional Appearance: well nourished Orientation/consciousness: oriented to person, oriented to place and oriented to time HENMT Ears: TM's normal bilaterally General nose exam: Normal nasal mucous membranes and turbinates present Eyes Conjunctivae: conjunctivae normal Sclerae: sclerae normal Pupils: Equal, round and reactive pupils present Neck Neck: Yes no lymphadenopathy and Yes no JVD Thyroid: Thyroid normal Carotids: no bruits Resp Effort & Inspection: normal respiratory effort and not tachypneic Auscultation: no crackles, no rales, no rhonchi and no wheezes Cardio Rate: regular rate Rhythm: regular rhythm Heart sounds: no murmurs and normal S1 and S2 GI Palpation (GI): Soft to palpation, nontender, no hepatomegaly and no splenomegaly Auscultation: normal bowel sounds Skin General skin exam: no rashes or lesions noted and dry skin Neuro General: oriented to person, oriented to place and oriented to time Cranial nerves: Yes Equal, round and reactive pupils present Speech: No Abnormal speech present Gait exam (Neuro): Normal gait present Motor exam (neuro): no tremor noted Extrem Right upper extremity: full ROM Left upper extremity: full ROM Right lower extremity: full ROM; no edema Left lower extremity: full ROM; no edema Psych Mental Status: mental status grossly normal Speech and movement: Normal speech and movement present Affect: normal affect Attitude: cooperative Thought process: Normal thought process present Coding Level of Care Code Est Pt Level 4 (58950) Diagnoses Benign paroxysmal positional vertigo due to bilateral vestibular disorder H81.13 Laterality: bilateral Sacroiliac joint dysfunction of left side M53.3 Additional Codes MIGUEL-7 Assessment Billing - MIGUEL-7 Assessment Tool: MIGUEL-7 Assessment 28670 ([id number]) PHQ-9 - 25432 - PHQ-9 Billing: Yes ([id number]) Assessment & Plan Assessment & Plan (1) BPPV (benign paroxysmal positional vertigo): Code(s): H81.10 - Benign paroxysmal vertigo, unspecified ear Category: Medical Qualifiers: Laterality: bilateral Qualified Code(s): H81.13 - Benign paroxysmal vertigo, bilateral Plan: The patient will continue with vestibular therapy, including the Roseanna maneuver, to manage BPPV symptoms. Antihistamines such as Claritin are recommended to address fluid in the middle ear, which may exacerbate vertigo symptoms. Follow-up with an ENT specialist is scheduled to further evaluate and manage the condition. (2) Sacroiliac joint dysfunction of left side: Code(s): M53.3 - Sacrococcygeal disorders, not elsewhere classified Category: Medical Plan: Physical therapy is recommended to address sacroiliac joint dysfunction, focusing on exercises to alleviate pain and improve mobility. The use of anti-inflammatory medications such as ibuprofen is advised to reduce inflammation and pain. An x-ray of the pelvis and sacroiliac joint is planned to assess any structural abnormalities. Orders: Orders Comprehensive [place]. Panel Fast 09/16/24 Z13.1 - Encounter for screening for diabetes mellitus Complete Blood Count no Diff 09/16/24 Z13.1 - Encounter for screening for diabetes mellitus XR sacroiliac joint min 3V 09/16/24 M53.3 - Sacrococcygeal disorders, not elsewhere classified
[2024-09-16 15:17] VITALS: BP 102/64; PULSE 67; TEMP 36.1; O2SAT 100; BMI 30.1
--- OUTSIDE RECORDS SUMMARY | 2024-09-16 17:39 | XMS_ITS | Clinical Summary ---
Author Organization [facility] Address [address] [place] [address] Care Team Providers Care Professor Of Special Education Name Role Phone SpeedyShannonYannickgurvinder TALLEY Primary Care Provider [phone] Allergies Active Allergy Reactions Criticality Noted Date Comments Sulfa Antibiotics Unknown/Patient and Family Unable to Define Medium 01/18/2021 Medications No known medications Social History Tobacco Use Types Packs/Day Years Used Date Smoking Tobacco: Never Assessed Comments Unknown Sex and Gender Information Value Date Recorded Sex Assigned at Not on file Legal Sex Female 4:19 PM EDT Gender Identity Not on file Sexual Orientation Not on file Last Filed Vital Signs Vital Sign Reading Time Taken Comments Blood Pressure 119/78 01/18/2021 4:29 PM EDT Pulse 95 01/18/2021 4:29 PM EDT Temperature 36.7 ??C (98.1 ??F) 01/18/2021 4:29 PM ED T Respiratory Rate - - Oxygen Saturation 95% 01/18/2021 4:29 PM EDT Inhaled Oxygen Concentration - - Weight - - Height - - Body Mass Index - - Plan of Treatment Health Maintenance Due Date Last Done Comments Hepatitis C Virus Screening 1972 HIV Screening 1985 DTaP/Tdap/Td Vaccines (1 - Tdap) 1991 Hepatitis B Vaccines (1 of 3 - 19+ 3-dose series) 05/03 Pap Smear (Ages 21-65) 1993 Mammogram 2012 Colonoscopy 2017 Pneumococcal Vaccines 50+ (1 of 1 - PCV) 2022 Zoster (Shingles) Vaccine (1 of 2) 2022 COVID-19 Vaccine ( season) 2023 Influenza Vaccine 10/31/2024 Insurance [facility] Care Teams Professor Of Special Education Relationship Specialty Start Date End Date Yannick Ruff APRN [address] [place] [address] PCP - General
== END 2024-09-16 16:00 | disposition home or self-care (01) ==
LOC: HO.HMCH 15:09
PROVIDERS: PCP Physician Assistant; Visit Provider Physician Assistant
DX: H81.13 Benign paroxysmal vertigo, bilateral (principal); M53.3 Sacrococcygeal disorders, not elsewhere classified

== ENCOUNTER → 2024-09-16 15:08 | Outpatient (BNVA) | payer OTHER, SELFPAY | PROVIDERS: PCP Physician Assistant; Visit Provider Physician Assistant | DX: H81.13 Benign paroxysmal vertigo, bilateral (principal); M53.3 Sacrococcygeal disorders, not elsewhere classified | CPT/HCPCS: 96127 ==

== ENCOUNTER 2024-09-19 07:10 | Outpatient (REF) | payer OTHER, SELFPAY ==
--- NOTE | ~2024-09-19 | XR_ITS ---
EXAMINATION: XR SACROILIAC JOINTS CLINICAL INFORMATION: M53.3 - Sacrococcygeal disorders, not elsewhere classified COMPARISON: None available. TECHNIQUE: AP and oblique views of the sacroiliac joints FINDINGS: No acute cortical disruption. No lytic or blastic lesions. Prominent transverse processes of L5 extending into S1. XR/XR sacroiliac joint min 3V IMPRESSION: No sacroiliitis. 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 Electronically signed by: Tanner More MD 09/19/2024 07:36 AM EDT
--- OUTSIDE RECORDS SUMMARY | 2024-09-19 07:12 | XMS_ITS ---
Author Name [facility] Organization Unknown Encounters Encounter Type Encounter Reason Primary Diagnosis Location Date Ambulatory Acute pharyngiti s, unspecified [facility] 01/18/2021 Care Team Organization Name Specialty Phone Email Start Date End Da te [facility] 01/19/2021 11/19/2023 [facility] 01/18/2021 01/18/2021
[2024-09-19 07:50] LABS: Hematocrit 40.1 % (37.0-47.0); Hemoglobin 13.4 g/dl (12.0-16.0); Mean Corpuscular HGB Conc 33.4 g/dl (31.0-35.0); Mean Corpuscular Volume 86.8 fL (80.0-98.0); Mean Platelet Volume 9.1 fL (9.4-12.3); Platelet Count 277 X10*3/uL (160-400); Red Blood Count 4.62 X10*6/uL (4.20-5.50); Red Cell Distribution Width 11.9 % (11.0-16.0); White Blood Count 7.2 X10*3/uL (4.8-10.8)
[2024-09-19 08:14] LABS: Alanine Aminotransferase 20 U/L (0-31); Albumin Level 4.2 g/dL (3.5-5.0); Alkaline Phosphatase 86 U/L (39-117); Anion Gap 10 (12-20); Aspartate Amino Transferase 21 U/L (5-31); Bilirubin Total 0.5 mg/dL (0.0-1.0); Blood Urea Nitrogen 11 mg/dL (9-16); Calcium 9.1 mg/dL (8.4-10.2); Carbon Dioxide 27 mmol/L (22-29); Chloride 107 mmol/L (96-108); Estimated Glomerular Filt Rate > 60; Glucose Fasting 86 mg/dL (60-99); Potassium 4.1 mmol/L (3.3-5.1); Sodium 140 mmol/L (135-145); Total Protein 6.7 g/dL (6.5-8.0)
== END 2024-09-19 07:11 | disposition home or self-care (01) ==
LOC: HO.LAB 07:10
PROVIDERS: PCP Physician Assistant; Visit Provider Physician Assistant
DX: Z13.1 Encounter for screening for diabetes mellitus (principal); M53.3 Sacrococcygeal disorders, not elsewhere classified
CPT/HCPCS: 36415; 72202; 80053; 85027

== ENCOUNTER → 2024-09-19 07:20 | Outpatient (BNV) | payer OTHER, SELFPAY | PROVIDERS: PCP Physician Assistant; Visit Provider Radiology Diagnostic Radiology | DX: M53.3 Sacrococcygeal disorders, not elsewhere classified (principal) | CPT/HCPCS: 72202 ==

== ENCOUNTER 2024-11-17 14:56 | Outpatient (AMB) | payer OTHER, SELFPAY ==
--- NOTE | 2024-11-17 15:01 | MHC.PC.OV ---
Vital Signs 11/17/24 15:03 Height 5 ft 3 in Weight 167 lb 8 oz BMI 29.7 BP 130/72 Blood Pressure Location Lt brachial Position Sitting Pulse 61 Pulse Source Pulse Oximeter Temp 97.1 F Temp Source Temporal Artery Scan Pulse Oximetry (%) 99 Oxygen Delivery Method Room Air Intake Visit Reasons: Migrane Intake Note: Patient is here to follow up on Migraine. Reverse Unit Operator Required: No Centrifugal Casting Machine Operator: Not Required per policy Accompanied by: Self / Same As Patient Allergies sulfacetamide Allergy (Unknown, Verified 11/17/24 15:11) Unknown Medication List - Last Reconciled 11/17/24 by Tito Townsend PA-C meclizine 12.5 mg PO TID PRN Tobacco use date assessed: 11/17/24 Dental Screening Dental Screen Date: 09/16/24 HPI Migrane HPI Details The patient is a 54-year-old female presenting with migraine. The migraine began on Sunday and has been intermittent, accompanied by photosensitivity, nausea, lightheadedness, and dizziness. She has a history of a previous migraine and has been dealing with Benign Paroxysmal Positional Vertigo (BPPV) and ear pain this summer. The patient reports recurring ear pain after initial treatment with amoxicillin and home ear drops. An ENT evaluation suggested a musculoskeletal cause, but the patient suspects an inner ear issue. The patient has been using [id number] Tylenol and migraine-specific Tylenol with caffeine, which has provided some relief. She has also undergone vestibular therapy for BPPV, which indicated no further need for Roseanna maneuvers but suggested nerve rehabilitation. The patient experiences hearing loss in the right ear, which has not yet warranted hearing aids, and reports occasional tinnitus, possibly influenced by family history of Meniere's disease. [facility] Medical History Simple cystoma of ovary Amenorrhea Frequency of urination History of abnormal cervical Pap smear History of endometrial biopsy Surgical History History of loop electrical excision procedure (LEEP) Hx of colonoscopy History of removal of skin mole Hx of section Family History Maternal Aunt Ovarian cancer Brother Hodgkin lymphoma Social History Housing: House Alcohol intake: current Alcohol intake frequency: does not drink Alcohol type: wine Patient Tobacco Use Status: Former Tobacco user Years Smoked: 10 e-Cigarette/Vaping Use: Never Used Second Hand Smoke Exposure: Yes service: No Current occupational status: employed Current occupation: [employer] Current occupational exposures/hazards: No Sexual orientation: Straight/Heterosexual Gender identity: Female Cognitive needs: No Hearing needs: No Vision needs: Yes Female Reproductive History Menstrual Age of Menarche: 14 Questionnaire Thrive Questionnaire Date Thrive assessed: 09/16/24 I am a: Patient What is your living situation today?: I have a steady place to live Within the past 12 months, did the food you bought not last and you didn't have the money to get more?: Never true Within the past 12 months, did you worry whether your food would run out before you got money to buy more?: Never true Do you have trouble paying for medicines?: No Do you have trouble getting transportation to medical appointments?: No Do you have trouble paying your heating and electricity bill?: No Do you have trouble taking care of your child, family member or friend?: No Do you have trouble with day-to-day activities such as bathing, preparing meals, shopping, managing finances, etc.?: No Are you currently unemployed and looking for a job?: No Are you interested in more education?: No Please select the resources that you would like help with: None Currently or been in a relationship where the following occur: No concerns reported THRIVE Score: 0 MIGUEL-7 AMB Questionnaire MIGUEL-7 Date MIGUEL - 7 assessed: 09/16/24 Source: Developed by Drs. Allan Padilla, Angeli Durbin, Oniel Brewster and colleagues, with an educational augustine from [employer]. Review of Systems Const Reports headache(s) Eyes Denies loss of vision ENT Denies vertigo, Denies dizziness, Reports headache(s), Reports sinus pain and Denies sore throat Card Denies chest pain, Denies leg edema and Denies lightheadedness Resp Denies cough, Denies hemoptysis and Denies wheezing GI Denies abdominal pain, Denies melena, Denies constipation, Denies diarrhea and Denies vomiting Denies urinary frequency, Denies dysuria and Denies urinary urgency Musc Denies arthralgias, Denies joint swelling, Denies numbness and Denies tingling Neuro Denies Abnormal speech present, Denies behavioral changes, Denies vertigo, Denies dizziness, Reports headache(s), Denies loss of vision, Denies memory loss, Denies numbness and Denies tingling Psych Denies anxiety, Denies behavioral changes, Denies depression, Denies memory loss and Denies panic attacks Jp/Lymph Denies easy bleeding and Denies easy bruising Aller/Immun Denies wheezing Physical exam (Primary Care) Vital Signs: Last Vital Signs Temp 97.1 F 11/17/24 15:03 Pulse 61 11/17/24 15:03 BP 130/72 11/17/24 15:03 Pulse Ox 99 11/17/24 15:03 Oxygen Delivery Method Room Air 11/17/24 15:03 BMI result Body Mass Index 29.7 Tobacco/Smoking Status: Tobacco use Status Tobacco use date assessed 11/17/24 11/17/24 15:08 Patient Tobacco Use Status Former Tobacco user 11/17/24 15:08 Tobacco use type 10/17/24 14:10 e-Cigarette/Vaping Use Never Used 11/17/24 15:08 Thrive Assessment: Date of Thrive Assessment Date Thrive assessed 09/16/24 11/17/24 15:08 Currently or been in a relationship where the following occur: No concerns reported Const General: healthy appearing, no acute distress, alert and awake Nutritional Appearance: well nourished Orientation/consciousness: oriented to person, oriented to place and oriented to time HENMT Other: RIGHT EAR TYMPANIC MEMBRANE WITH NOTABLE AIR-FLUID THOUGH Ears: TM's abnormal bilaterally General nose exam: Normal nasal mucous membranes and turbinates present Eyes Conjunctivae: conjunctivae normal Sclerae: sclerae normal Pupils: Equal, round and reactive pupils present Neck Neck: Yes no lymphadenopathy and Yes no JVD Thyroid: Thyroid normal Carotids: no bruits Resp Effort & Inspection: normal respiratory effort and not tachypneic Auscultation: no crackles, no rales, no rhonchi and no wheezes Cardio Rate: regular rate Rhythm: regular rhythm Heart sounds: no murmurs and normal S1 and S2 GI Palpation (GI): Soft to palpation, nontender, no hepatomegaly and no splenomegaly Auscultation: normal bowel sounds Skin General skin exam: no rashes or lesions noted and dry skin Neuro General: oriented to person, oriented to place and oriented to time Cranial nerves: Yes Equal, round and reactive pupils present Speech: No Abnormal speech present Gait exam (Neuro): Normal gait present Motor exam (neuro): no tremor noted Extrem Right upper extremity: full ROM Left upper extremity: full ROM Right lower extremity: full ROM; no edema Left lower extremity: full ROM; no edema Psych Mental Status: mental status grossly normal Speech and movement: Normal speech and movement present Affect: normal affect Attitude: cooperative Thought process: Normal thought process present Coding Level of Care Code Est Pt Level 4 (43919) Diagnoses Migraine without aura and without status migrainosus, not intractable G43.009 Intractability: not intractable Migraine type: migraine (< 15 days per month) without aura Status migrainosus presence: without status migrainosus Unilateral headache R51.9 Assessment & Plan Assessment & Plan (1) Migraines: Code(s): G43.909 - Migraine, unspecified, not intractable, without status migrainosus Category: Medical Qualifiers: Intractability: not intractable Migraine type: migraine (< 15 days per month) without aura Status migrainosus presence: without status migrainosus Qualified Code(s): G43.009 - Migraine without aura, not intractable, without status migrainosus Plan: The patient will be prescribed sumatriptan to manage acute migraine episodes, with instructions to take it at the onset of symptoms and not exceed the recommended dosage. An MRI of the brain will be attempted for approval to rule out any underlying causes, with a CT scan as an alternative if necessary. (2) Unilateral headache: Code(s): R51.9 - Headache, unspecified Category: Medical Plan: As above Orders: Orders MR head/brain wo con 11/17/24 H81.13 - Benign paroxysmal vertigo, bilateral, R51.9 - Headache, unspecified Medications: New sumatriptan succinate take 1 tab at onset of headache; if no relief may repeat 1 tab after at least 2 hrs; max = 4 tabs/24 hr PO 9 tabs 0RF 30 days G43.009 - Migraine without aura, not intractable, without status migrainosus
[2024-11-17 15:03] VITALS: BP 130/72; PULSE 61; TEMP 36.2; O2SAT 99; BMI 29.7
--- OUTSIDE RECORDS SUMMARY | 2024-11-17 15:36 | XMS_ITS ---
Author Name [facility] Organization Unknown Encounters Encounter Type Encounter Reason Primary Diagnosis Location Date Ambulatory Acute pharyngiti s, unspecified [facility] 01/18/2021 Care Team Organization Name Specialty Phone Email Start Date End Da te [facility] 01/19/2021 11/19/2023 [facility] 01/18/2021 01/18/2021
--- OUTSIDE RECORDS SUMMARY | 2024-11-17 15:36 | XMS_ITS | Clinical Summary ---
Author Organization [facility] Address [address] [place] [address] Care Team Providers Care Chemical Handler Name Role Phone SpeedyShannonYannick MAYANK Primary Care Provider [phone] Allergies Active Allergy Reactions Criticality Noted Date [...] 95 01/18/2021 4:29 PM EDT Temperature 36.7 C (98.1 F) 01/18/2021 4:29 PM EDT Respiratory Rate - - Oxygen Saturation 95% [...] Vaccine (1 of 2) 2022 COVID-19 Vaccine (1 - 2023- season) 2023 Influenza Vaccine 10/31/2024 Insurance [facility] Care Teams Chemical Handler Relationship Specialty Start Date End Date Yannick Ruff APRN [address] [place] [address] PCP - General
== END 2024-11-17 15:36 | disposition home or self-care (01) ==
LOC: HO.HMCH 14:57
PROVIDERS: PCP Physician Assistant; Visit Provider Physician Assistant
DX: G43.009 Migraine without aura, not intractable, without status migrainosus (principal); R51.9 Headache, unspecified

== ENCOUNTER 2024-12-04 16:43 | Outpatient (REF) | payer OTHER, SELFPAY ==
--- NOTE | ~2024-12-04 | MR_ITS ---
EXAMINATION: MR BRAIN WITHOUT INTRAVENOUS CONTRAST CLINICAL INFORMATION: Patient with a 2 to three-month history of right-sided ear pain, episodes COMPARISON: None available. TECHNIQUE: MRI of the brain was obtained using routine sequences without contrast. FINDINGS: Brain parenchyma: No shift of midline structures. Nonspecific few T2/FLAIR hyperintense changes in the white matter of bilateral frontal lobes. No evidence of acute infarct, parenchymal hemorrhage or mass lesion. Note is made of a partially empty sella. Ventricles/extra-axial spaces: No hydrocephalus. No extra-axial fluid collection. Extracranial structures: Arterial flow voids in the skull base are preserved. Unremarkable appearance of the bilateral orbits. Minimal mucosal thickening of the ethmoid air cells. Mucous retention cyst or polypoid thickening associated with mild mucosal thickening of the left maxillary sinus. Mastoid air cells are clear. MR/MR head/brain wo con IMPRESSION: Nonspecific white matter changes in bilateral frontal lobes. Differentials include headache related white matter changes, microangiopathic disease, demyelinating disorder and various inflammatory/autoimmune/vasculitic process. Electronically signed by: Spencer Leary MD 12/04/2024 05:43 PM EDT
--- OUTSIDE RECORDS SUMMARY | 2024-12-04 16:52 | XMS_ITS | Clinical Summary ---
Author Organization [facility] Address [address] [place] [address] Care Team Providers Care Operations Support Representative Name Role Phone SpeedyShannonYannickgurvinder TALLEY Primary Care Provider [phone] Allergies Active Allergy Reactions Criticality Noted Date [...] 2023- season) 2023 Influenza Vaccine 10/31/2024 Insurance [facility] Care Teams Operations Support Representative Relationship Specialty Start Date End Date Yannick Ruff APRN [address] [place] [address] PCP - General
== END 2024-12-04 16:44 | disposition home or self-care (01) ==
LOC: HO.MRI 16:43
PROVIDERS: PCP Physician Assistant; Visit Provider Physician Assistant
DX: R51.9 Headache, unspecified (principal); H81.13 Benign paroxysmal vertigo, bilateral
CPT/HCPCS: 70551

== ENCOUNTER → 2024-12-04 16:56 | Outpatient (BNV) | payer OTHER, SELFPAY | PROVIDERS: PCP Physician Assistant; Visit Provider Radiology Body Imaging | DX: R51.9 Headache, unspecified (principal); R90.82 White matter disease, unspecified | CPT/HCPCS: 70551 ==

== ENCOUNTER 2024-12-10 12:12 | Outpatient (REF) | payer OTHER, SELFPAY ==
--- OUTSIDE RECORDS SUMMARY | 2024-12-10 15:21 | XMS_ITS | Clinical Summary ---
Author Organization [facility] Address [address] [place] [address] Care Team Providers Care Fitness Consultant Name Role Phone SpeedyShannonYannickgurvinder TALLEY Primary Care Provider [phone] Allergies Active Allergy Reactions Criticality Noted Date [...] 2023- season) 2023 Influenza Vaccine 10/31/2024 Insurance [facility] Care Teams Fitness Consultant Relationship Specialty Start Date End Date Yannick Ruff APRN [address] [place] [address] PCP - General
== END 2024-12-10 12:13 | disposition home or self-care (01) ==
LOC: HO.MAMMO 12:12
PROVIDERS: PCP Physician Assistant; Visit Provider Physician Assistant
DX: Z12.31 Encounter for screening mammogram for malignant neoplasm of breast (principal)
CPT/HCPCS: 77063; 77067

== ENCOUNTER → 2024-12-10 12:15 | Outpatient (BNV) | payer OTHER, SELFPAY | PROVIDERS: PCP Physician Assistant; Visit Provider Internal Medicine | DX: Z12.31 Encounter for screening mammogram for malignant neoplasm of breast (principal) | CPT/HCPCS: 77063; 77067 ==

== ENCOUNTER 2024-12-22 14:08 | Outpatient (AMB) | payer OTHER, SELFPAY ==
[2024-12-22 14:12] VITALS: BP 108/66; PULSE 73; TEMP 36.3; O2SAT 100; BMI 29.4
--- NOTE | 2024-12-22 14:12 | MHC.PC.OV ---
Vital Signs 12/22/24 14:12 Height 5 ft 3 in Weight 166 lb BMI 29.4 BP 108/66 Blood Pressure Location Lt brachial Position Sitting Pulse 73 Pulse Source Pulse Oximeter Temp 97.3 F Temp Source Temporal Artery Scan Pulse Oximetry (%) 100 Oxygen Delivery Method Room Air Intake Visit Reasons: Follow-up BPPV Allergies sulfacetamide Allergy (Unknown, Verified 12/22/24 14:21) Unknown Medication List - Last Reconciled 12/22/24 by Tito Townsend PA-C meclizine 12.5 mg PO TID PRN sumatriptan succinate take 1 tab at onset of headache; if no relief may repeat 1 tab after at least 2 hrs; max = 4 tabs/24 hr PO 30 days Tobacco use date assessed: 12/22/24 Dental Screening Dental Screen Date: 12/22/24 Did you have a dental visit in the last 12 months?: Yes Did you have a dental problem in the last 6 months where you did not have access to dental care?: No Was dental information given to patient?: Patient has dentist HPI Follow-up BPPV HPI Details The patient is a 54-year-old female for follow-up visit. Patient has a past medical history significant for BPPV, migrain. Patient recently underwent a brain MRI showing-- >Nonspecific white matter changes in bilateral frontal lobes. Differentials include headache related white matter changes, microangiopathic disease, demyelinating disorder and various inflammatory/autoimmune/vasculitic process. She reports a history of migraines lasting about seven days, with the most recent episode resolving spontaneously after her last visit. As above the MRI revealed nonspecific white matter changes in the bilateral frontal lobes, raising concerns for potential migraine-related changes or other conditions. Currently she is asymptomatic PLAN: Will refer to Neurology for evaluation in this MRI whether repeat MRI with without contrast would be helpful. COUNTS INCLUDE 234 BEDS AT THE [facility] Medical History Simple cystoma of ovary Amenorrhea Frequency of urination History of abnormal cervical Pap smear History of endometrial biopsy Surgical History History of loop electrical excision procedure (LEEP) Hx of colonoscopy History of removal of skin mole Hx of section Family History Maternal Aunt Ovarian cancer Brother Hodgkin lymphoma Social History Housing: House Alcohol intake: current Alcohol intake frequency: does not drink Alcohol type: wine Patient Tobacco Use Status: Former Tobacco user Years Smoked: 10 e-Cigarette/Vaping Use: Never Used Second Hand Smoke Exposure: Yes service: No Current occupational status: employed Current occupation: [employer] Current occupational exposures/hazards: No Sexual orientation: Straight/Heterosexual Gender identity: Female Cognitive needs: No Hearing needs: No Vision needs: Yes Female Reproductive History Menstrual Age of Menarche: 14 Questionnaire PHQ-9 Over the last 2 weeks, how often have you been bothered by any of the following problems? 1. Little interest or pleasure in doing things: several days 2. Feeling down, depressed, or hopeless: not at all 3. Trouble falling or staying asleep, or sleeping too much: not at all 4. Feeling tired or having little energy: several days 5. Poor appetite or overeating: not at all 6. Feeling bad about yourself - or that you are a failure or have let yourself or your family down: not at all 7. Trouble concentrating on things, such as reading the newspaper or watching television: several days 8. Moving or speaking so slowly that other people could have noticed. Or the opposite - being so fidgety or restless that you have been moving around a lot more than usual: not at all 9. Thoughts that you would be better off or of hurting yourself in some way: not at all Total score: 3 Depression Screening Interpretation: Positive Depression Screening Follow-up: Existing condition Depression Screening Done: Yes 38206 - PHQ-9 Billing: Yes Source: Developed by Drs. Allan Padilla, Angeli Durbin, Oniel Brewster and colleagues, with an educational augustine from [employer]. Thrive Questionnaire Date Thrive assessed: 09/16/24 I am a: Patient What is your living situation today?: I have a steady place to live Within the past 12 months, did the food you bought not last and you didn't have the money to get more?: Never true Within the past 12 months, did you worry whether your food would run out before you got money to buy more?: Never true Do you have trouble paying for medicines?: No Do you have trouble getting transportation to medical appointments?: No Do you have trouble paying your heating and electricity bill?: No Do you have trouble taking care of your child, family member or friend?: No Do you have trouble with day-to-day activities such as bathing, preparing meals, shopping, managing finances, etc.?: No Are you currently unemployed and looking for a job?: No Are you interested in more education?: No Please select the resources that you would like help with: None Currently or been in a relationship where the following occur: No concerns reported THRIVE Score: 0 AUDIT C Alcohol Use Questionnaire (AUDIT-C) 1. How often do you have a drink containing alcohol?: 2-3 times a week 2. How many drinks containing alcohol do you have on a typical day when you are drinking?: 1 or 2 3. How often do you have six or more drinks on one occasion?: Never Total Score: 3 MIGUEL-7 AMB Questionnaire MIGUEL-7 Date MIGUEL - 7 assessed: 09/16/24 Feeling nervous, anxious, or on edge: 0 = Not at all Not being able to stop or control worryin = Not at all Worrying too much about different things: 0 = Not at all Trouble relaxin = Not at all Being so restless that it is hard to sit still: 0 = Not at all Becoming easily annoyed or irritable: 0 = Not at all Feeling afraid as if something awful might happen: 0 = Not at all Total MIGUEL-7 score (0-4 normal; 5-9 mild; 10-14 moderate; 15-21 severe): 0 Source: Developed by Drs. Allan Padilla, Angeli Durbin, Oniel Brewster and colleagues, with an educational augustine from [employer]. Review of Systems Const Denies headache(s) Eyes Denies loss of vision ENT Denies vertigo, Denies dizziness, Denies headache(s) and Denies sore throat Card Denies chest pain, Denies leg edema and Denies lightheadedness Resp Denies cough, Denies hemoptysis and Denies wheezing GI Denies abdominal pain, Denies melena, Denies constipation, Denies diarrhea and Denies vomiting Denies urinary frequency, Denies dysuria and Denies urinary urgency Musc Denies arthralgias, Denies joint swelling, Denies numbness and Denies tingling Neuro Denies Abnormal speech present, Denies behavioral changes, Denies vertigo, Denies dizziness, Denies headache(s), Denies loss of vision, Denies memory loss, Denies numbness and Denies tingling Psych Denies anxiety, Denies behavioral changes, Denies depression, Denies memory loss and Denies panic attacks Jp/Lymph Denies easy bleeding and Denies easy bruising Aller/Immun Denies wheezing Physical exam (Primary Care) Vital Signs: Last Vital Signs Temp 97.3 F 12/22/24 14:12 Pulse 73 12/22/24 14:12 BP 108/66 12/22/24 14:12 Pulse Ox 100 12/22/24 14:12 Oxygen Delivery Method Room Air 12/22/24 14:12 BMI result Body Mass Index 29.4 Tobacco/Smoking Status: Tobacco use Status Tobacco use date assessed 12/22/24 12/22/24 14:16 Patient Tobacco Use Status Former Tobacco user 12/22/24 14:16 Tobacco use type 10/17/24 14:10 e-Cigarette/Vaping Use Never Used 12/22/24 14:16 PHQ-9: PHQ-9 Score PHQ-9: Total score 3 12/22/24 14:16 Depression Screening Interpretation: Positive Depression Screening Follow-up: Existing condition Thrive Assessment: Date of Thrive Assessment Date Thrive assessed 09/16/24 12/22/24 14:16 Currently or been in a relationship where the following occur: No concerns reported Const General: healthy appearing, no acute distress, alert and awake Nutritional Appearance: well nourished Orientation/consciousness: oriented to person, oriented to place and oriented to time [facility] Ears: TM's normal bilaterally General nose exam: Normal nasal mucous membranes and turbinates present Eyes Conjunctivae: conjunctivae normal Sclerae: sclerae normal Pupils: Equal, round and reactive pupils present Neck Neck: Yes no lymphadenopathy and Yes no JVD Thyroid: Thyroid normal Carotids: no bruits Resp Effort & Inspection: normal respiratory effort and not tachypneic Auscultation: no crackles, no rales, no rhonchi and no wheezes Cardio Rate: regular rate Rhythm: regular rhythm Heart sounds: no murmurs and normal S1 and S2 GI Palpation (GI): Soft to palpation, nontender, no hepatomegaly and no splenomegaly Auscultation: normal bowel sounds Skin General skin exam: no rashes or lesions noted and dry skin Neuro General: oriented to person, oriented to place and oriented to time Cranial nerves: Yes Equal, round and reactive pupils present Speech: No Abnormal speech present Gait exam (Neuro): Normal gait present Motor exam (neuro): no tremor noted Extrem Right upper extremity: full ROM Left upper extremity: full ROM Right lower extremity: full ROM; no edema Left lower extremity: full ROM; no edema Psych Mental Status: mental status grossly normal Speech and movement: Normal speech and movement present Affect: normal affect Attitude: cooperative Thought process: Normal thought process present Coding Level of Care Code Est Pt Level 4 (14688) Diagnoses White matter disease R90.82 Migraine without aura and without status migrainosus, not intractable G43.009 Migraine type: migraine (< 15 days per month) without aura Status migrainosus presence: without status migrainosus Intractability: not intractable Additional Codes PHQ-9 - 50513 - PHQ-9 Billing: Yes ([id number]) Assessment & Plan Assessment & Plan (1) White matter disease: Code(s): R90.82 - White matter disease, unspecified Category: Medical Plan: A repeat brain MRI with and without contrast is recommended to further evaluate the nonspecific white matter changes, particularly in the right frontal lobe. The patient is advised to consider a neurology referral for further assessment and management of the MRI findings. (2) Migraines: Code(s): G43.909 - Migraine, unspecified, not intractable, without status migrainosus Category: Medical Qualifiers: Migraine type: migraine (< 15 days per month) without aura Status migrainosus presence: without status migrainosus Intractability: not intractable Qualified Code(s): G43.009 - Migraine without aura, not intractable, without status migrainosus Plan: Patient's above signs and symptoms most consistent with a migraine though can not rule out a white matter disease noted on MRI. Patient doing much better now status post her 7 day migraine.
== END 2024-12-22 14:44 | disposition home or self-care (01) ==
LOC: HO.HMCH 14:09
PROVIDERS: PCP Physician Assistant; Visit Provider Physician Assistant
DX: R90.82 White matter disease, unspecified (principal); G43.009 Migraine without aura, not intractable, without status migrainosus

== ENCOUNTER → 2024-12-22 14:08 | Outpatient (BNVA) | payer OTHER, SELFPAY | PROVIDERS: PCP Physician Assistant; Visit Provider Physician Assistant | DX: G43.009 Migraine without aura, not intractable, without status migrainosus (principal); R90.82 White matter disease, unspecified | CPT/HCPCS: 96127 ==

== ENCOUNTER 2025-01-16 14:21 | Outpatient (AMB) | payer OTHER, SELFPAY ==
--- NOTE | 2025-01-16 14:22 | MHC.OFFVIS ---
Vital Signs 01/16/25 14:29 Height 5 ft 3 in Weight 165 lb BMI 29.2 BP 122/82 Blood Pressure Location Rt brachial Position Sitting Respiration 16 Pulse 82 Pulse Source Pulse Oximeter Pulse Oximetry (%) 99 Oxygen Delivery Method Room Air Intake Visit Reasons: INP- abnormal MRI Exhibition Specialist Required: No Accompanied by: Mother Allergies sulfacetamide Allergy (Unknown, Verified 12/22/24 14:21) Unknown HPI Comments Details: Josephine is a 54-year-old female patient with a past medical history of BPPV, migraine, urinary frequency, and amenorrhea who is presenting upon referral from primary care for evaluation of headaches in the setting of an abnormal MRI of the brain. She tells me today that over the summer, she began having more frequent episodes of vertigo which were triggered by exercise such as Pilates or yoga. She was he using the Roseanna maneuver which was helpful though ended up going to vestibular physical therapy after which her vertigo symptoms improved. These symptoms went on for approximately 1 week or so intermittently and have since resolved. In the early fall of this year, she experienced a headache. This headache was preceded by nausea which started approximately 24 hours before onset of her headache. She describes a severe headache to the by lateral frontal area and retro-orbital area associated with light sensitivity, nausea, and sensation of heaviness or brain fog to the front part of her head. This headache lasted approximately 7-8 days and due to the pain and longevity of the headache she became very concerned and sought out medical attention through primary care. She notes that during this headache she also experienced right ear pain and postauricular pain for which she saw an ear nose and throat provider who thought perhaps this was related to musculoskeletal changes. They did not see any abnormalities in her inner ear. Her right ear pain also resolved with resolution of her headache. She denies an ongoing history of migraine or headaches but notes that she has only had 2 migraine-type headaches in her life. She has no known family history of neurological disease including migraine. She also denies any other types of headaches regularly throughout her life. She denies any vision changes, visual loss, diplopia, scotomas, changes to speech or swallow, areas of focal weakness, poor coordination, changes to bladder or bowels, or any paresthesias. Other related background information: Sleep: She reports that she sleeps well but snores. She does not have any day daytime somnolance Stressors:Reports that her stress levels are high due to work Hydration:Drinks lots of water Caffeine intake: 2 cups of coffee per Alcohol intake: A glass of wine every night at dinner Substance use: None Tobacco use:None Last eye exam: About 1 year ago Last dental visit: Within the last year but denies clenching or grinding History of head injury:None Past medication trials: None (sumatriptan as prescribed by primary care though she has not yet tried this) Prior workup: MRI Brain w/o contrast 12/2024: IMPRESSION: Nonspecific white matter changes in bilateral frontal lobes. Differentials include headache related white matter changes, microangiopathic disease, demyelinating disorder and various inflammatory/autoimmune/vasculitic process. [facility] Medical History (Updated 01/16/25 @ 15:16 by Jeannette Reyes CNP) Migraines Simple cystoma of ovary Amenorrhea Frequency of urination History of abnormal cervical Pap smear Surgical History History of endometrial biopsy History of loop electrical excision procedure (LEEP) Hx of colonoscopy History of removal of skin mole Hx of section Family History Maternal Aunt Ovarian cancer Brother Hodgkin lymphoma Social History Housing: House Alcohol intake: current Alcohol intake frequency: does not drink Alcohol type: wine Patient Tobacco Use Status: Former Tobacco user Years Smoked: 10 e-Cigarette/Vaping Use: Never Used Second Hand Smoke Exposure: Yes service: No Current occupational status: employed Current occupation: [employer] Current occupational exposures/hazards: No Sexual orientation: Straight/Heterosexual Gender identity: Female Cognitive needs: No Hearing needs: No Vision needs: Yes Female Reproductive History Menstrual Age of Menarche: 14 Review of Systems Const All systems reviewed & are unremarkable except as noted in HPI and below Physical Exam Const General: cooperative, healthy appearing, comfortable and no acute distress Nutritional Appearance: well nourished Orientation/consciousness: patient oriented x3 Limitations: no limitations HEENT Head: Yes normal to inspection and Yes normocephalic Eyes General: appearance normal, both eyes and all related structures Visual Abarca: normal visual abarca by confrontation Alignment and Position: alignment normal Periorbital: periorbital findings normal Eyelids: Yes eyelids normal Conjunctivae: conjunctivae normal Sclerae: sclerae normal Neck Neck: Yes normal visual inspection and Yes full ROM General: Yes no CVA tenderness Back/Spine/Pelvis Back: no CVA tenderness Cervical Spine: normal cervical lordosis Thoracic/Lumbar Spine: thoracic and lumbar spine normal to inspection Neuro General: patient oriented x3 and deep tendon reflexes 2+ bilaterally Cranial nerves: Yes CN's II-XII intact bilaterally and Yes Facial sensation intact/muscles of mastication intact Cognition (Neuro): normal cognition Gait exam (Neuro): Normal gait present Motor exam (neuro): 5/5 motor strength present throughout and no tremor noted Sensory Exam: double simultaneous stimulation for sensation normal Romberg Test: Negative Pupils: Normal pupillary reactivity/response: bilateral Psych Appearance: grossly normal Mental Status: mental status grossly normal Speech and movement: Normal speech and movement present and Clear speech present Affect: normal affect Attitude: cooperative Thought process: Normal thought process present Thought content: Normal thought content present Insight: Good insight present (Psych) Judgement: Good judgement present (Psych) Assessment & Plan Assessment & Plan (1) Migraines: Code(s): G43.909 - Migraine, unspecified, not intractable, without status migrainosus Category: Medical Qualifiers: Migraine type: migraine (< 15 days per month) without aura Status migrainosus presence: without status migrainosus Intractability: not intractable Qualified Code(s): G43.009 - Migraine without aura, not intractable, without status migrainosus (2) White matter disease: Code(s): R90.82 - White matter disease, unspecified Category: Medical Plan Josephine is a 54-year-old female patient with a past medical history of BPPV, migraine, urinary frequency, and amenorrhea who is presenting upon referral from primary care for evaluation of headaches in the setting of an abnormal MRI of the brain. Her most recent headache episode is most consistent with migraine. Migraine and other primary headache types such as tension-type headaches can cause ear pain. She has had complete resolution of her symptoms and denies any further neurological symptoms as outlined in HPI above. Her MRI of the brain does show some nonspecific white matter disease to the bifrontal areas. While migraine is known to perhaps caused some white matter changes, she does not have a prolonged history of migraine. She does have a couple of other risk factors including prior history of smoking and frequent alcohol use. She was counseled on reduction of alcohol intake. She does not however have any other risk factors such as elevated blood sugars, elevated blood glucose, or cholesterol levels. Because risk factors are overall minimal, I will repeat her MRI of the brain with and without contrast to evaluate for any lesion enhancement though less likely. She does not have any clinical or exam features concerning for demyelinating disease. She denies any tick bites however I will order a Lyme antibody for reassurance. Other things that can cause white matter disease include B12 deficiencies and autoimmune disorders. I will order corresponding lab tests for evaluation. Once testing has been performed, I will have her follow up in the clinic. I also encouraged her to trial sumatriptan should she have another migraine-type headache and to contact me should she develop any arising neurological symptoms. -Repeat MRI brain with and without contrast to evaluate for any lesion enhancement -MRA head and neck to evaluate for any intercranial or cervical atherosclerotic disease -Labs: Lyme ab screen, B12, SHREYA, and DSD -Recommended reduction in alcohol intake -Try Sumatriptan as needed for acute migraine headaches as prescribed by PCP Orders: Orders DNA Double Stranded-Crithidia Today R90.82 - White matter disease, unspecified Lyme IgG/IgM w/reflex to WB Today G43.009 - Migraine without aura, not intractable, without status migrainosus, R90.82 - White matter disease, unspecified Vitamin B12 Today R90.82 - White matter disease, unspecified SHREYA Reflex Titer and Pattern Today R90.82 - White matter disease, unspecified Coding Level of Care Code New Pt Level 4 (31175) Diagnoses Migraine without aura and without status migrainosus, not intractable G43.009 Migraine type: migraine (< 15 days per month) without aura Status migrainosus presence: without status migrainosus Intractability: not intractable White matter disease R90.82
[2025-01-16 14:29] VITALS: BP 122/82; PULSE 82; RESP 16; O2SAT 99; BMI 29.2
--- OUTSIDE RECORDS SUMMARY | 2025-01-16 16:54 | XMS_ITS | Data Portability ---
Author Organization [place] - [facility], Allergy Address [address] [place] [phone] Care Team Providers Care Residential Gas Heat Technician Name Role Phone SHOAIB ALMAZAN Primary Care Provider [phone] Assessment Encounter Date Assessment Date Assessment LastModified by Organization Details LastModified Time 10/30/2024 10/30/2024 1. Right Ear Brianna n The pain in the right ear is attributed to TMJ dysfunction, not an ongoing ear infection. Examination showed a normal ear. Management focuses on TMJ-related treatments with NSAIDs, warm compresses, and monitoring muscle tension. 2. Benign Paroxysmal Positional Vertigo (BPPV) Patient was educated to continue positional maneuvers for self-treatment. Vestibular rehabilitation has been effective previously. Advised to attend therapy sessions if needed for symptom recurrence. 3. Temporomandibular Joint Disorder (TMJ) The pain is likely due to TMJ disorder or associated muscle tension. Recommended managing with Motrin, warm compresses, and potential use of a bite guard. Further self-observation for jaw muscle tension suggested. 4. Hearing Loss The patient presents with mild to moderate bilateral hearing loss. Current management does not involve immediate intervention but suggest repeat hearing testing in two years. [email or web address] Not available 10/30/2024 10:04:31 Plan of Treatment Reminders Order Date Submit Date Provider Last Modified By Organization Details Last Modified Time Details Appointments None record ed. Lab None record ed. Referral None record ed. Procedures None record ed. Surgeries None record ed. Imaging None record ed. Medication Orders None record ed. Patient TargetsNo targets recorded. Patient Instructions Encounter Date Encounter Id Patient Instructions Last Modified By Organization Details Last Modified Time 10/30/2024 [id number] Please note: Parts of this encounter note have been generated by AI based on audio conversation. Patient consent was required prior to utilizing this technology. Content review was required prior to finalizing the note. [email or web address] Not available 10/30/2024 10:04:31 Reason for Referral None Reported. Results Created Date Observation Date Name Description Value Unit Range Abnormal Flag Note LastModifiedBy Organization Detail LastModifiedTime 10/31/19 25 audio gram No observ ation record ed. BARCODE Not Available 2024 10:12:45 Result Notes None recorded. Problems Name Problem SNOMED Code Status Onset Date Resolution Date Notes Provider Name and Address Organization Details Recorded Time Sensorineural hearing loss of bilateral ears 435963400 Active 2024 ROEL SOTOMAYOR MA, CHRISTOPHER-A [address] [place] [address], [place], [address], [facility] - [facility] 09:30:25 Dizziness 763125583 Active 2024 LAZARA HENAO MD [address] [place] [address], [place], [address], [facility] - [facility] 09:50:39 Tension-type headache 929917048 Active 2024 LAZARA HENAO MD [address] [place] [address], [place], [address], [facility] 10:04:20 Problem Notes None recorded. Procedures Surgical History Date Name Laterality Status Provider Name and Address Organization Details Recorded Time 10/30/2024 Comp Audio with Tymps - 88540 & 66898 completed ROEL SOTOMAYOR MA, CCC-A [address] [place] [address],[address], [address], [facility] 10/30/2024 09:30:34 Imaging Results None recorded. Procedure Notes None recorded. Medical Equipment None Reported. Allergies Allergen ID Allergen Name Allergen Category Reaction Reaction Severity Criticality Documentation Date Start Date Code Code System Note Provider Name and Address Organization Details Recorded Time 956214 Substance with sulfonami de structure and antibacte rial mechanism of action (substanc e) medicatio n Not available Not available Not available 10/30/2024 51067 8003 SNOMED KEYLA COMI null, [place] - [facility] 09:39:34 Medications Name Sig Start Date Stop Date Status Note LastModified by Organization Details LastModified Time amoxicillin 500 mg capsule TAKE 1 CAPSULE BY MOUTH EVERY 8 HOURS FOR 7 DAYS 10/30 completed Not Available Not Available Not Available Vitals Date Recorded Body height Body mass index (BMI) Body weight Provider Name and Address Organization Details Last Updated DateTime 10/30/2024 160.02 cm 29.8 kg/m2 58198.52 g KEYLA RASHEEDA RATLIFF - [facility] 10/30/2024 09:39:18 Social History None recorded. Functional Status None recorded. Mental Status None recorded. Family History Nothing Reported Notes:- Family history of M ni re's disease and tinnitus on paternal side. Medical History No medical history recorded. Gynecological HistoryNo gynecological history recorded. Obstetrics History GPAL:G 0 P 0 0 0 0 Past Encounters Encounter ID Performer Location Encounter Start Date Encounter Closed Date Diagnosis/Indication Diagnosis SNOMED-CT Code Diagnosis ICD10 Code Diagnosis IMO Codes Diagnosis Note [id number] LAZARA HENAO MD [facility] [address] [address] 10/30/2024 08:55:09 10/30/2024 10:05:26 Sensorineural hearing loss of bilateral ears 092539601 H90.3 [id number] Audiologic al evaluation results:Ri ght ear:Normal hearing sloping to a mild-moder ate SNHL with excellent word recognitio n.Left ear:Normal hearing sloping to a mild SNHL with excellent word recognitio n. Tympanomet ry:Right Ear:Type AdLeft Ear:Type Ad Dizziness 148507377 R42 992543 completed vestibular therapy Tension-type headache 39 0610209 G44.209 11814 Health Concerns Section Related Observation LastModified by Organization Detai ls LastModified Time None Recorded Concern Status LastModified by Organization Details LastModified Time None Recorded Advance Directives Directive None Recorded Payers Insurance Date Sequence Insurance Name Policy Number Policy [place] Covered Member ID [place] Member ID Guarantor Name 01/14/2025 1 [facility] [id number] Josephine Valenzuela [id number] Josephine Valenzuela 10/30/2024 1 [facility] [id number] Josephine Valenzuela [id number] Josephine Valenzuela Notes Date Note Type Note Provider Name and Address Organization Details Recorded Time 10/30/2024 text/html right ear pressure, dizzy The patient is a 54-year-old female presenting with right ear pain and associated hearing concerns. Ear discomfort arose during recurring BPPV episodes, with recent pain management using amoxicillin prescribed during a recent vacation. Despite the course of antibiotics, the patient experiences unresolved right ear pressure Episodes of BPPV have occurred intermittently over the past few years, often triggered by simple movements or exercises, now self-managed with bethanie maneuver. LAZARA HENAO MD [address] [place] [address], [place], [phone], [facility] - [facility] 10/30/2024 10:06:55 OBGyn Episode No OBEpisode recorded.
== END 2025-01-16 15:17 | disposition home or self-care (01) ==
LOC: HO.HSM 14:22
PROVIDERS: PCP Physician Assistant; Referring Provider Physician Assistant; Visit Provider Nurse Practitioner
DX: G43.009 Migraine without aura, not intractable, without status migrainosus (principal); R90.82 White matter disease, unspecified
CPT/HCPCS: 99204

== ENCOUNTER 2025-01-16 14:21 | Outpatient (REF) | payer OTHER, SELFPAY ==
[2025-01-16 17:15] LABS: Vitamin B12 547 pg/mL (200-900)
[2025-01-19 14:03] LABS: Lyme Abs Screen <0.90 index
[2025-01-21 14:44] LABS: Anti Nuclear Antibody Screen NEGATIVE (NEGATIVE)
[2025-01-24 09:38] LABS: DNAds, Crithidia Antibody Negative (Negative)
== END 2025-01-16 14:22 | disposition home or self-care (01) ==
LOC: HO.LAB 14:21
PROVIDERS: PCP Physician Assistant; Referring Provider Physician Assistant; Visit Provider Nurse Practitioner
DX: G43.009 Migraine without aura, not intractable, without status migrainosus (principal); R90.82 White matter disease, unspecified; Z01.84 Encounter for antibody response examination
CPT/HCPCS: 36415; 82607; 86038; 86255; 86617; 86618

== ENCOUNTER 2025-02-17 14:29 | Outpatient (AMB) | payer OTHER, SELFPAY ==
--- NOTE | 2025-02-17 14:34 | MHC.OFFVIS ---
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 Menopausal approximately 3 years. Currently not sexually active with . Attempting to eat a healthy diet with calcium and vitamin D and stays active with exercise. Last pap smear; 2021, negative. Last mammogram; 2024. Colonoscopy is UTD. FH ovarian cancer. [facility] Medical History Migraines Simple cystoma of ovary Amenorrhea Frequency of urination History of abnormal cervical Pap smear Surgical History History of endometrial biopsy History of loop electrical excision procedure (LEEP) Hx of colonoscopy History of removal of skin mole Hx of section Family History Maternal Aunt Ovarian cancer Brother Hodgkin lymphoma Social History Housing: House Alcohol intake: current Alcohol intake frequency: does not drink Alcohol type: wine Patient Tobacco Use Status: Former Tobacco user Years Smoked: 10 e-Cigarette/Vaping Use: Never Used Second Hand Smoke Exposure: Yes service: No Current occupational status: employed Current occupation: [employer] Current occupational exposures/hazards: No Sexual orientation: Straight/Heterosexual Gender identity: Female Cognitive needs: No Hearing needs: No Vision needs: Yes Female Reproductive History Menstrual Age of Menarche: 14 Total pregnancies: 2 Full term: 1 Number of Living Children: 1 Date of last pap smear: 08/02/21 (neg pap and hpv) History of abnormal pap smear: Yes (hx leep mild dysplasia age 21) Date of Mammogram: 12/10/24 (Birad 1) Review of Systems Const All systems reviewed & are unremarkable except as noted in HPI and below Reports as per HPI Eyes Reports no additional complaints ENT Reports no additional complaints Card Reports no additional complaints Resp Reports no additional complaints GI Reports as per HPI and Reports no additional complaints Reports as per HPI Musc Reports no additional complaints Skin/Breast Reports as per HPI Neuro Reports no additional complaints Psych Reports no additional complaints Endo Reports no additional complaints Jp/Lymph Reports no additional complaints Aller/Immun Reports no additional complaints Physical Exam Vital Signs: Last Vital Signs BP 110/68 02/17/25 14:35 BMI result Body Mass Index 28.7 Const General: cooperative, healthy appearing, no acute distress, well developed and alert Orientation/consciousness: patient oriented x3 HEENT Head: Yes normal to inspection Eyes General: appearance normal, both eyes and all related structures Neck Neck: Yes normal visual inspection Thyroid: Thyroid normal Chest Chest palpation & inspection: normal inspection of the chest and other (no puckering, dimpling, peau de orange, retraction, discharge, masses) Breast/axilla inspection: normal inspection of the breasts Breast/axilla palpation: normal palpation of the breasts Resp Effort & Inspection: normal respiratory effort GI Inspection: Yes normal to inspection Palpation (GI): Soft to palpation Rectal Exam - Female: deferred General: Yes bladder normal to palpation External Female Exam: normal external appearance and normal appearance of the urethra Speculum Exam - Vagina: normal appearance of the vagina, normal palpation and normal vaginal discharge Speculum Exam - Cervix: normal appearance of the cervix, normal palpation and Cervical lesion present polyp Bimanual exam- vagina & uterus: normal bimanual exam, normal palpation, uterine size normal, bladder normal to palpation, normal palpation and non-tender Bimanual Exam- Adnexa, other: no masses Skin General skin exam: no rashes or lesions noted Rashes: no rashes Neuro General: patient oriented x3 Cognition (Neuro): normal cognition Extrem General: Yes normal to inspection Psych Attitude: cooperative Thought process: Normal thought process present Office Procedures Cervical Polypectomy Details Details: Consent for Cervical Polypectomy procedure: The patient is here today for an Cervical Polypectomy. She was counseled regarding anticipatory guidance for the procedure including the risks for pain, infection, bleeding, perforation, potential injury to the tissues may include the cervix, vagina, uterus, tubes, bladder and bowels. These injuries may include further treatment and evaluation including surgery, blood transfusions, antibiotics, hospitalizations and anesthesia. Permanent injury and scarring can occur. She was consented for the procedure, and the consent forms were signed. She is agreeable to have the procedure today. All questions were answered. Polypectomy Procedure: The patient was placed in the dorsal lithotomy position and a sterile speculum inserted. Using aseptic technique for the procedure. The cervix was cleansed with Betadine x 3 swabs. The polyp was grasped with a a ring forceps and removed, small remnant piece remained and was removed easily with a Mima.. The tissue sample was placed in formalin in a patient labeled container by staff assisting and sent to the pathology department for processing and interpretation. Minimal bleeding was observed.The patient tolerate the procedure well and was in good condition when leaving the department. Post Polypectomy Care: There may be some bleeding for several days that is usually light and can turn to a light brown or pink in color. Mild cramping may occur. Nothing in the vagina including: tampons, douching or intimacy for a week. You may take an over the counter mild analgesia like Tylenol or Advil (if no allergies), per the manufacturers recommendations on dosing and frequency. Follow the directions completely. Call the office if any: fever (over 100.4), flu like symptoms, abdominal pain, worsening cramping not resolved with over the counter medications, foul smelling vaginal odor, signs of infected appearing discharge, or heavy bleeding. A follow up for results on the pathology will be made. Please call the office if you have any concerns. This note is constructed using voice recognition software. While every effort has been made to ensure accuracy, microbiological lab technician errors may have been included. CPT: 70152 - Cervical Polypectomy All charges added?: Procedure code (CPT) selection complete Assessment & Plan Assessment & Plan (1) Encounter for annual routine gynecological examination: Code(s): Z01.419 - Encounter for gynecological examination (general) (routine) without abnormal findings Category: Medical Plan: Discussed: Current recommendations for pap smears per ASCCP guidelines. Breast awareness, periodic self breast exams and yearly mammogram. Maintain a healthy lifestyle, well balanced diet including Calcium 1,200 mg and Vitamin D 600 IU daily, and routine exercise. The use of vaginal estrogens, Replens moisturizer. Follow up PRN. Libido concerns. Contact the office with any postmenopausal bleeding. Patient verbalizes understanding and agrees to the plan of care. She was given opportunity to ask questions and all questions were answered to the best of my ability. 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 This note is constructed using voice recognition software. While every effort has been made to ensure accuracy, microbiological lab technician errors may have been included. (2) Cervical polyp: Code(s): N84.1 - Polyp of cervix uteri Category: Medical Plan Cervical Polypectomy completed. See procedure notes. This note is constructed using voice recognition software. While every effort has been made to ensure accuracy, microbiological lab technician errors may have been included. Orders: Orders Surgical Today N84.1 - Polyp of cervix uteri Coding Level of Care Code Procedure Only Diagnoses Encounter for annual routine gynecological examination Z01.419 Cervical polyp N84.1 CPT Codes Details - CPT: 20772 - Cervical Polypectomy ([id number]) Comment Procedure added to annual exam
[2025-02-17 14:35] VITALS: BP 110/68; BMI 28.7
--- OUTSIDE RECORDS SUMMARY | 2025-02-18 12:09 | XMS_ITS | Data Portability ---
Author Organization [place] - [facility], Allergy Address [address] [place] [address] Care Team Providers Care Community Nutrition Educator Name Role Phone SHOAIB ALMAZAN Primary Care Provider Assessment Encounter Date Assessment Date Assessment LastModified [...] By Organization Details Last Modified Time 10/30/2024 [id number] Please note: Parts of this encounter note [...] Time Sensorineural hearing loss of bilateral ears 298642953 Active 2024 ROEL SOTOMAYOR MA, CHRISTOPHER-A [address] [place] [address], [place], [address], [facility] - [facility] 09:30:25 Dizziness 921791067 Active 2024 LAZARA HENAO MD [address] [place] [address], [place], [address], [facility] - [facility] 09:50:39 Tension-type headache 773586117 Active 2024 LAZARA HENAO MD [address] [place] [address], [place], [address], [facility] 10:04:20 Problem Notes None recorded. Procedures Surgical History Date Name Laterality Status Provider Name and Address Organization Details Recorded Time 10/30/2024 Comp Audio with Tymps - 34647 & 53998 completed ROEL SOTOMAYOR MA, CCC-A [address] [place] [address],[address], [address], [facility] 10/30/2024 09:30:34 Imaging Results None recorded. Procedure Notes None recorded. Medical Equipment None Reported. Allergies Allergen ID Allergen Name Allergen Category Reaction Reaction Severity Criticality Documentation Date Start Date Code Code System Note Provider Name and Address Organization Details Recorded Time 637529 Substance with sulfonami de structure and antibacte rial mechanism of action (substanc e) medicatio n Not available Not available Not available 10/30/2024 47876 8003 SNOMED KEYLA COMI null, [place] - [facility] 09:39:34 Medications Name Sig Start Date Stop [...] Updated DateTime 10/30/2024 160.02 cm 29.8 kg/m2 51770.52 g KEYLA RASHEEDA RATLIFF - [facility] 10/30/2024 09:39:18 Social History None recorded. Functional [...] ICD10 Code Diagnosis IMO Codes Diagnosis Note [id number] LAZARA HENAO MD [facility] [address] [address] 10/30/2024 08:55:09 10/30/2024 10:05:26 Sensorineural hearing loss of bilateral ears 695352407 H90.3 [id number] Audiologic al evaluation results:Ri ght ear:Normal hearing sloping to a mild-moder ate SNHL with excellent word recognitio n.Left ear:Normal hearing sloping to a mild SNHL with excellent word recognitio n. Tympanomet ry:Right Ear:Type AdLeft Ear:Type Ad Dizziness 527340662 R42 060304 completed vestibular therapy Tension-type headache 39 4897935 G44.209 55178 Health Concerns Section Related Observation LastModified by Organization Detai ls LastModified Time None Recorded Concern Status LastModified by Organization Details LastModified Time None Recorded Advance Directives Directive None Recorded Payers Insurance Date Sequence Insurance Name Policy Number Policy [place] Covered Member ID [place] Member ID Guarantor Name 01/14/2025 1 [facility] ([facility] [id number] Josephine Valenzuela [id number] Josephine Valenzuela 10/30/2024 1 [facility] [id number] Josephine Valenzuela [id number] Josephine Valenzuela Notes Date Note Type Note [...] self-managed with bethanie maneuver. LAZARA HENAO MD [address] [place] [address], [place], [address], [facility] - [facility] 10/30/2024 10:06:55 OBGyn Episode No OBEpisode recorded.
--- OUTSIDE RECORDS SUMMARY | 2025-02-18 12:10 | XMS_ITS | Clinical Summary ---
Author Organization [facility] Address [address] [place] [address] Care Team Providers Care Belt Notcher Name Role Phone SpeedyShannonYannick MAYANK Primary Care Provider Allergies Active Allergy Reactions Criticality Noted Date [...] Zoster (Shingles) Vaccine (1 of 2) 2022 Influenza Vaccine 10/31/2024 COVID-19 Vaccine (2023-25 season) 2024 RSV Vaccine 50 years and old er and Patients (1 - 1-dose 75+ series) 2047 Insurance [employer] Care Teams Belt Notcher Relationship Specialty Start Date End Date Yannick Ruff APRN [address] [place] [address] PCP - General
== END 2025-02-17 16:24 | disposition home or self-care (01) ==
PROVIDERS: PCP Physician Assistant; Visit Provider Advanced Practice Midwife
DX: N84.1 Polyp of cervix uteri (principal); Z01.419 Encounter for gynecological examination (general) (routine) without abnormal findings
CPT/HCPCS: 57500

== ENCOUNTER 2025-02-17 14:29 | Outpatient (REF) | payer OTHER, SELFPAY | END 2025-02-17 14:30 | disposition home or self-care (01) | LOC: HO.LNP 14:29 | PROVIDERS: PCP Physician Assistant; Visit Provider Advanced Practice Midwife | DX: Z01.419 Encounter for gynecological examination (general) (routine) without abnormal findings (principal); N84.1 Polyp of cervix uteri | CPT/HCPCS: 57500; 88305 ==